=== PATIENT | female | born 1985 | race Caucasian/White ===

== ENCOUNTER 2024-09-20 10:23 | Outpatient (REF) | payer MEDICAID, SELFPAY ==
--- OUTSIDE RECORDS SUMMARY | 2024-09-20 09:30 | XMS_ITS | Encounter Summary ---
Author Organization [employer] Address [address] [place] [address] Care Team Providers Care Ophthalmology Surgical Technician Name Role Phone Victorina De La Torre MD Primary Care Provide r Encounter Details Date Type Department Care Team (Latest Contact Info) Description 09/20/2024 9:30 AM EDT Office Visit [facility] [address], [place] [phone] Victorina De La Torre MD [address], [place] [phone] Chronic nonintractable headache, unspecified headache type (Primary Dx); Constipation, unspecified constipation type; Anxiety; Cervicalgia; Metrorrhagia; Tuberculosis screening Social History Tobacco Use Types Packs/Day Years Used Date Smoking Tobacco: Never Passive Smoke Exposure: Never Smokeless Tobacco: Never Tobacco Cessation:Counseling Given: Not Answered Alcohol Use Standard Drinks/Week Comments Yes 0 (1 standard drink = 0.6 oz pur e alcohol) occasionally Depression Answer Date Recorded Patient Health Questionnaire-9 Score 0 09/20/2024 Patient Health Questionnaire-9 Score 0 09/20/2024 Last PHQ-9: Questionnaire Data Not on file 0 09/20/2024 Housing Stability Answer Date Recorded What is your housing situation today? I have sandra joseph 09/20/[address] you li ve. Do you have problems with any of the following? None of the above 09/20/2024 Food Insecurity Answer Date Recorded Within the past 12 months, y ou worried that your food would run out before you got money to buy more: Never True 09/20/2024 Within the past 12 months,th e food you bought just didn't last and you didn't have enough money to get more: Never True 05/2024 Transportation Answer Date Recorded In the past 12 months, has l ack of transportation kept you from medical appts, meetings, work or from getting things needed for daily living? No 09/20/2024 Utilities Answer Date Recorded In the past 12 months, has t he electric, gas, oil or water company threatened to shut off services in your home? No 09/20/2024 Depression Answer Date Recorded Patient Health Questionnaire-2 Score 0 09/20/2024 Internet Access Answer Date Recorded Internet Access Q1 Yes 09/20/2024 Internet Access Q2 Not on file 09/20/2024 Comments Unknown Sex and Gender Information Value Date Recorded Sex Assigned at Female 08/04/2024 10:08 AM EDT Legal Sex Female 9:31 AM EDT Gender Identity Female 08/04/2024 10:08 AM EDT Sexual Orientation Choose not to disclose 2024 9:33 AM EDT documented as of this encounter Last Filed Vital Signs Vital Sign Reading Time Taken Comments Blood Pressure 112/70 09/20/2024 9:07 AM EDT Pulse 78 09/20/2024 9:07 AM EDT Temperature 36.6 C (97.9 F) 09/20/2024 9:07 AM EDT Respiratory Rate 12 09/20/2024 9:07 AM EDT Oxygen Saturation - - Inhaled Oxygen Concentration - - Weight 52.2 kg (115 lb) 09/20/2024 9:07 AM EDT Height 158.5 cm (5' 2.4 ) 09/20/2024 9:07 AM EDT Body Mass Index 20.76 09/20/2024 9:07 AM EDT documented in this encounter Functional Status * Over the past 2 weeks, how often have you been bothered by any of the following problems? Question Answer Date of Assessment Author Patient Health Questionnaire-2 Score 0 05/2024 9:11 AM EDT Jyoti Galeana MA * Little interest or pleasure in doing things Answer Date of Assessment Author Not at all 09/20/2024 9:11 AM EDT Edilma Galeana MA * Feeling down, depressed, or hopeless Answer Date of Assessment Author Not at all 09/20/2024 9:11 AM EDT Edilma Galeana MA * Trouble falling or staying asleep, or sleeping too much Answer Date of Assessment Author Not at all 09/20/2024 9:11 AM EDT Edilma Galeana MA * Feeling tired or having little energy Answer Date of Assessment Author Not at all 09/20/2024 9:11 AM EDT Edilma Galeana MA * Poor appetite or overeating Answer Date of Assessment Author Not at all 09/20/2024 9:11 AM EDT Edilma Galeana MA * Feeling bad about yourself - or that you are a failure or have let yourself or your family down Answer Date of Assessment Author Not at all 09/20/2024 9:11 AM EDT Edilma Galeana MA * Trouble concentrating on things, such as reading the newspaper or watching television Answer Date of Assessment Author Not at all 09/20/2024 9:11 AM EDT Edilma Galeana MA * Moving or speaking so slowly that other people could have noticed? Or the opposite - being so fidgety or restless that you have been moving around a lot more than usual. Answer Date of Assessment Author Not at all 09/20/2024 9:11 AM EDT Edilma Galeana MA * Thoughts that you would be better off or hurting yourself in some way Answer Date of Assessment Author Not at all 09/20/2024 9:11 AM EDT Edilma Galeana MA * Patient Health Questionnaire-9 Score Answer Date of Assessment Author 0 09/20/2024 9:11 AM EDT Edilma Galeana MA * Over the last 2 weeks, how often have you been bothered by any of the following problems? Question Answer Date of Assessment Author Feeling nervous, anxious, or on edge 1 05/2024 9:11 AM EDT Jyoti Galeana MA Not being able to stop or co ntrol worrying 0 09/20/2024 9:11 AM GEMAT Jyoti Galeana MA Worrying too much about diff erent things 0 09/20/2024 9:11 AM EDT Jyoti Galeana MA Trouble relaxing 0 09/20/2024 9:11 AM EDT S Jyoti parra MA Being so restless that it is hard to sit still 0 09/20/2024 9:11 AM EDT Jyoti Galeana MA Becoming easily annoyed or irritable 0 0705/2024 9:11 AM EDT Jyoti Galeana MA Feeling afraid as if somethi ng awful might happen 0 09/20/2024 9:11 AM EDT Jyoti Galeana MA ELHAM-7 Total Score 1 09/20/2024 9:11 AM EDT Jyoti Galeana MA documented as of this encounter Plan of Treatment Upcoming Encounters Date Type Department Care Team (Late st Contact Info) Description 11/27/2024 10:45 AM EDT Telemedicine [facility] [address] [place] [address] Victorina De La Torre MD [address] [place] [address] Scheduled Orders Name Type Priority Associated Diagnoses Orde r Schedule CBC auto differential Lab Routine Chronic nonintractable headache, unspecified headache type Expected: 09/20/2024 (Approximate), Expires: 09/20/2025 Comprehensive Metabolic Panel Lab Routine Chronic nonintractable headache, unspecified headache type Expected: 09/20/2024 (Approximate), Expires: 09/20/2025 Hemoglobin A1c Lab Routine Chronic nonintractable headache, unspecified headache type Expected: 09/20/2024 (Approximate), Expires: 09/20/2025 HIV-1/2 Antigen and Antibodies, Fourth Generation, with Reflexes Lab Routine Chronic nonintractable headache, unspecified headache type Expected: 09/20/2024 (Approximate), Expires: 09/20/2025 Hepatitis C Antibody with Reflex to HCV, RNA, Quantitative, Real-Time PCR Lab Routine Chronic nonintractable headache, unspecified headache type Expected: 09/20/2024, Expires: 09/20/2025 Lipid Panel, Standard Lab Routine Chronic nonintractable headache, unspecified headache type Expected: 09/20/2024 (Approximate), Expires: 09/20/2025 Vitamin D, 25-Hydroxy, Total, Immunoassay Lab Routine Chronic nonintractable headache, unspecified headache type Expected: 09/20/2024 (Approximate), Expires: 09/20/2025 TSH with Reflex to Free T4 Lab Routine Chronic nonintractable headache, unspecified headache type Constipation, unspecified constipation type Anxiety Metrorrhagia Expected: 09/20/2024 (Approximate), Expires: 09/20/2025 T-SPOT .TB Lab Routine Tuberculosis screening Expected: 09/20/2024 (Approximate), Expires: 09/20/2025 documented as of this encounter Visit Diagnoses Diagnosis Chronic nonintractable headache, unspecified headache type- Primary Constipation, unspecified constipation type Anxiety Anxiety state, unspecified Cervicalgia Metrorrhagia Tuberculosis screening Screening examination for pulmonary tuberculosis documented in this encounter Additional Health Concerns Assessment Noted Time PHQ-9 Depression Total Score: 0 09/21/19 9:11 AM EDT documented as of this encounter Care Teams Ophthalmology Surgical Technician Relationship Specialty Start Date End Date Victorina De La Torre MD [address] [place] [id number] PCP - General Internal Medicine 09/20/24 documented as of this encounter
[2024-09-20 11:06] LABS: MANUAL DIFF FLAG NO
[2024-09-20 11:26] LABS: Hematocrit 35.2 % (37.0-47.0); Hemoglobin 11.4 g/dl (12.0-16.0); Imm Gran Abs Auto 0.00 X10*3/uL (0.00-0.03); Imm Gran Pct Auto 0.0 % (0.0-0.4); Lymphocytes Absolute Auto 2.2 X10*3/uL (1.2-4.9); Mean Corpuscular HGB Conc 32.4 g/dl (31.0-35.0); Mean Corpuscular Hemoglobin 28.1 pg (27.0-33.0); Mean Corpuscular Volume 86.7 fL (80.0-98.0); NRBC Abs Auto 0.000 X10*3/uL (0.0-0.012); NRBC Pct Auto 0.0 /100WBC (0.0-0.2); Platelet Count 346 X10*3/uL (160-400); Red Blood Count 4.06 X10*6/uL (4.20-5.50); White Blood Count 4.9 X10*3/uL (4.8-10.8)
[2024-09-20 11:44] LABS: Hemoglobin A1C 125.3131 umol/L; Total Hemoglobin (HGBA1C) 3657.0404 umol/L
[2024-09-20 11:55] LABS: Alanine Aminotransferase 22 U/L (0-31); Albumin Level 4.8 g/dL (3.5-5.0); Alkaline Phosphatase 60 U/L (39-117); Anion Gap 11 (12-20); Aspartate Amino Transferase 24 U/L (5-31); Blood Urea Nitrogen 15 mg/dL (9-16); Calcium 9.3 mg/dL (8.4-10.2); Carbon Dioxide 28 mmol/L (22-29); Chloride 104 mmol/L (96-108); Cholesterol 251 mg/dL (<200); Estimated Glomerular Filt Rate > 60; HDL Cholesterol 65 mg/dL (>40); Potassium 3.7 mmol/L (3.3-5.1); Sodium 139 mmol/L (135-145); Total Protein 7.4 g/dL (6.5-8.0); Triglycerides 74 mg/dL (<150)
[2024-09-20 11:59] LABS: HIV Num 1 0.05 S/CO (0.00-0.99); ~HepC Num1 0.12 S/CO (0.00-0.79); ~Hepatitis C Antibody Nonreactive (Nonreactive)
[2024-09-24 01:28] LABS: TS Negative Control Passed; TS Panel A 38; TS Panel B 38; TS Positive Control Passed; TSpotTB Positive (Negative)
== END 2024-09-20 10:24 | disposition home or self-care (01) ==
LOC: HO.HHCL 10:23
PROVIDERS: PCP Internal Medicine; Visit Provider Internal Medicine
DX: Z11.1 Encounter for screening for respiratory tuberculosis (principal); R51.9 Headache, unspecified; G89.29 Other chronic pain; K59.00 Constipation, unspecified; N92.1 Excessive and frequent menstruation with irregular cycle; F41.9 Anxiety disorder, unspecified
CPT/HCPCS: 36415; 80053; 80061; 82306; 83036; 84443; 85025; 86481; 86803; 87389

== ENCOUNTER 2024-09-26 08:40 | Outpatient (REF) | payer MEDICAID, SELFPAY ==
--- NOTE | ~2024-09-26 | XR_ITS ---
EXAMINATION: XR CHEST CLINICAL INFORMATION: TB COMPARISON: None available. TECHNIQUE: 2 views of the chest were obtained. FINDINGS: No consolidation, pleural effusion or pneumothorax. Cardiomediastinal silhouette size is normal. Mild multilevel thoracic spondylosis. Hyperinflated lungs. XR/XR chest 2V IMPRESSION: Hyperinflated lungs without acute airspace disease. Electronically signed by: Adiel Mason MD 09/26/2024 09:17 AM EDT
--- OUTSIDE RECORDS SUMMARY | 2024-09-26 08:52 | XMS_ITS | Clinical Summary ---
Author Organization [employer] Address [address] [facility] [address] [place] [address] Care Team Providers Care Central Supply Tech Name Role Phone Victorina De La Torre MD Primary Care Provide r Allergies No known active allergies Medications DULoxetine (Cymbalta) [address] capsule Take 30 mg by mouth 2 times daily. Do not crush or chew. Active amitriptyline (Elavil) 25 MG tablet Take by mouth at bedtime. Active polyethylene glycol, PEG, 3350 (Miralax) 17 g packet Take 17 g by mouth Once per day. 30 packet 3 Active Additional Information Patient not taking.Reported on 09/20/2024 Sennosides (Senna) 8.6 MG capsule Take 1 capsule (8.6 mg) by mouth at bedtime. 90 capsule Active Additional Information Patient not taking.Reported on 09/20/2024 Active Problems Problem Noted Date Diagnosed Date Chronic headache 09/20/2024 Assessment & Plan (09/20/2024 12:25 PM EDT): Drink plenty of water do not get dehydrated, avoid excessive screen time, avoid alcohol Acetaminophen as needed Constipation 09/20/2024 Assessment & Plan (09/20/2024 12:23 PM EDT): Drink plenty of water add more fiber to diet Continue with MiraLAX as needed Daily exercise was also recommended Anxiety 09/20/2024 Assessment & Plan (09/20/2024 12:24 PM EDT): Counseling done patient is in the process of getting a therapist she is being followed by psychiatrist via telemedicine Cervicalgia 09/20/2024 Assessment & Plan (09/20/2024 12:24 PM EDT): Apply heat on affected area, gentle stretching, acetaminophen as needed Metrorrhagia 09/20/2024 Assessment & Plan (09/20/2024 12:23 PM EDT): Will continue to monitor for now Tuberculosis screening 09/20/2024 Assessment & Plan (09/20/2024 12:24 PM EDT): Patient reports tuberculosis test done previously was positive, but she was never treated I will repeat T spot, if positive I will refer patient to tuberculosis clinic Encounters Date Type Department Care Team Description 09/24/2024 Orders Only [address] [address] Victorina De La Torre MD Positive TB test (Primary Dx) 09/24/2024 Results Follow-Up [address] [address] Victorina De La Torre MD CBC auto differential, Comprehensive Metabolic Panel, Hemoglobin A1c, Additional followed-up results: 6 09/24/2024 Telephone [facility] [address] [place] [address] Victorina De La Torre MD 09/20/2024 9:30 AM EDT Office Visit [address] [address] Victorina De La Torre MD Chronic nonintractable headache, unspecified headache type (Primary Dx); Constipation, unspecified constipation type; Anxiety; Cervicalgia; Metrorrhagia; Tuberculosis screening 09/20/2024 Travel 09/19/[address] [address] Victorina De La Torre MD Chart Prep 09/13/2024 Patient Outreach [facility] [address], [place] [phone] Victorina De La Torre MD Pre-visit Planning (SDOH unable to reach LVM ) 08/24/2024 Telephone [facility] [address] [place] [phone] Evelyn Garza MD Chart Prep 08/12/2024 Telephone [facility] [address] [place] [address] [facility] 08/04/2024 10:00 AM EDT Office Visit [facility] [address] [place] [address] [facility] Nausea (Primary Dx) 08/04/2024 Travel from Last 3 Months Social History Tobacco Use Types Packs/Day Years [...] your housing situation today? I have sandra ruiz 09/20/[address] you li [...] not to disclose 2024 9:33 AM EDT Last Filed Vital Signs Vital Sign Reading Time Taken Comments Blood Pressure 112/70 09/20/2024 9:07 AM EDT Pulse 78 09/20/2024 9:07 AM EDT Temperature 36.6 C (97.9 F) 09/20/2024 9:07 AM EDT Respiratory Rate 12 09/20/2024 9:07 AM EDT Oxygen Saturation 92% 08/04/2024 10:22 AM EDT Inhaled Oxygen Concentration - - Weight 52.2 kg (115 lb) 09/20/2024 9:07 AM EDT Height 158.5 cm (5' 2.4 ) 09/20/2024 9:07 AM EDT Body Mass Index 20.76 09/20/2024 9:07 AM EDT Plan of Treatment Upcoming Encounters Date Type Department Care Team (Late st Contact Info) Description 11/27/2024 10:45 AM EDT Telemedicine [facility] [address] [place] [address] Victorina De La Torre MD [address] [place] [address] Health Maintenance Due Date Last Done Comments Family Planning (PISQ) 1998 HPV Vaccines (1 - 3-dose series) 1998 DTaP/Tdap/Td Vaccines (1 - Tdap) 2002 Hepatitis B Vaccines (1 of 3 - 19+ 3-dose series) 2002 Pap Smear 2004 Cervical Cancer Screening 2013 HPV/Cotest 2013 Mammogram 2023 COVID-19 Vaccine (1 - 2023-2 5 season) 2023 Influenza Vaccine (#1) 2024 Alcohol/Substance Use Screening 09/20/2025 09/20/2024 Depression Screening 09/20/2025 09/20/2024, 09/20/2024 Disability Screening 09/20/2025 09/20/2024 SDOH Screening 09/20/2025 09/20/2024 Tobacco Screening 09/20/2025 09/20/2024 Zoster Vaccines (1 of 2) 2033 RSV Patients and Patients Aged 60 years or older (1 - 1-dose 75+ series) 2058 HIV Screening Completed 09/20/2024 Hepatitis C Screening Completed 09/20/2024 HIB Vaccines Aged Out No longer eligi ble based on patient's age to complete this topic Hepatitis A Vaccines Aged Out No long er eligible based on patient's age to complete this topic IPV Vaccines Aged Out No longer eligi ble based on patient's age to complete this topic Meningococcal B Vaccine Aged Out No l onger eligible based on patient's age to complete this topic Meningococcal Vaccine Aged Out No cierra tonie eligible based on patient's age to complete this topic Pneumococcal Vaccine: Pediatrics (0 to 5 Years) and At-Risk Patients (6 to 49) Years Aged Out No longer eligible b ased on patient's age to complete this topic RSV under 20 months Aged Out No longe r eligible based on patient's age to complete this topic Rotavirus Vaccines Aged Out No longer eligible based on patient's age to complete this topic Procedures Procedure Name Priority Date/Time Associated Diagnosis Comments T-SPOT(R).TB Routine 09/20/2024 10:33 AM EDT Tuberculosis screening TSH W/REFLEX TO FT4 Routine 09/20/2024 1 0:33 AM EDT Chronic nonintractable headache, unspecified headache type Constipation, unspecified constipation type Anxiety Metrorrhagia VITAMIN D,25-OH,TOTAL,IA Routine 09/20/2024 10:33 AM EDT Chronic nonintractable headache, unspecified headache type LIPID PANEL, STANDARD Routine 09/20/2024 10:33 AM EDT Chronic nonintractable headache, unspecified headache type HEPATITIS C AB W/REFL TO HCV RNA, QN, PCR Routine 09/20/2024 10:33 AM EDT Chronic nonintractable headache, unspecified headache type HIV 1/2 ANTIGEN/ANTIBODY, FOURTH GENERATION W/RFL Routine 09/20/2024 10:33 AM EDT Chronic nonintractable headache, unspecified headache type HEMOGLOBIN A1C Routine 09/20/2024 10:33 AM EDT Chronic nonintractable headache, unspecified headache type COMPREHENSIVE METABOLIC PANEL Routine 09/20/2024 10:33 AM EDT Chronic nonintractable headache, unspecified headache type CBC WITH AUTO DIFFERENTIAL Routine 09/20/2024 10:33 AM EDT Chronic nonintractable headache, unspecified headache type POCT RAPID COVID ANTIGEN Routine 08/04/2024 10:53 AM EDT Nausea POCT INFLUENZA A (ID NOW RAPID MOLECULAR) Routine 08/04/2024 10:52 AM EDT Nausea POCT INFLUENZA B (ID NOW RAPID MOLECULAR) Routine 08/04/2024 10:51 AM EDT Nausea from Last 3 Months Results * Vitamin D, 25-Hydroxy, Total, Immunoassay (09/20/2024 10:33 AM EDT) [facility] Vitamin D 25-OH Total 31.1 >30 ng/mL [facility] Comment: Health Based Reference Values*< 20 ng/mL [id number] ng/mL Insufficient> 30 ng/mL Sufficient*Ashely MERRITT. N Engl J Med. 2007;357:266-280There is no well-established upper level of normal vitamin Dlevels. Some laboratories use 50 ng/mL as an upper limit ofnormal. However, toxicity is patient-dependent and may occurat any level. Careful correlation with the patient'spresentation is necessary and, if there is concern forvitamin D toxicity, treatment should be consideredirrespective of the serum level.Care must be taken in interpreting Vitamin D results fromdifferent laboratories and methodologies. Published datademonstrated that results from patients undergoinghemodialysis may show a negative bias when tested withvarious automated 25-OH vitamin D assays when compared toLC-MS/MS.When testing samples from patients whose predominant form ofVitamin D is Vitamin D2, such as patients receiving VitaminD2 supplementation, results that are subtherapeutic shouldbe confirmed with another method such as LC-MS/MS. Blood Venous blood specimen / Unknown 09/20/2024 10:33 AM EDT 09/20/2024 11:05 AM EDT us Victorina Medina MD LAB BLOOD ORDERABLES Final Result [facility] [address] [place] [phone] * (ABNORMAL) T-SPOT??.TB (09/20/2024 10:33 AM EDT) T Spot TB Positive( A) Negative [facility] Comment: Diagnosing or excluding tuberculosis (TB) disease andassessing the probability of latent TB infection (LTBI)requires a combination of epidemiological, historical,medical and diagnostic findings that should be takeninto consideration when interpreting T-SPOT.TB testresults. A positive test result does not rule in activeTB disease caused by Mycobacterium tuberculosis(M. tuberculosis); active TB disease should beconfirmed by other tests such as sputum smear andculture, PCR, and chest radiography.Uncommonly, a positive T-SPOT.TB result may be due toinfection with other Mycobacterium species includingM. kansasii, M. szulgai, M. gordonae, or M. marinum.Alternative tests would be required if these infectionsare suspected.The T-SPOT.TB test is qualitative and results arereported as positive, borderline, or negative, giventhat the test controls perform as expected. In linewith the Centers for Disease Control and Prevention's2010 recommendation to report quantitative measurementsalongside the qualitative result, the laboratoryprovides spot counts for informational purposes only.The T-SPOT.TB test should not be interpreted as aquantitative test. TS PANEL A 38 [facility] TS PANEL B 38 [facility] Negative Control Passed [facility] Positive Control Passed [facility] Comment:For additional infor brian, please refer [email or web address].quietrevolution/faq/DOD687(This link is being provided for informational/educational purposes only.)REPORT COMMENT:REC'D AT CHYTHIS TEST WAS PERFORMED AT:[id number] [place] [id number] KAISER MD,PHD 09/20/2024 10:3 3 AM EDT 09/20/2024 11:05 AM EDT Narrative [facility] - 09/24/2024 1:28 AM EDT RESULTS, AND CALLED [employer] AT [phone]. us Victorina Medina MD LAB BLOOD ORDERABLES Final Result Performing Organization Address [facility]/ZIP Co de Phone Number [facility] [address] [place] [phone] * TSH with Reflex to Free T4 (09/20/2024 10:33 AM EDT) Pathologist [facility] TSH reflex Free T4 0.54 0.32 - 4.0 uIU/mL [facility] Blood Venous blood specimen / Unknown 09/20/2024 10:33 AM EDT 09/20/2024 11:05 AM EDT us Victorina Medina MD LAB BLOOD ORDERABLES Final Result Performing Organization Address [facility]/ZIP Co de Phone Number [facility] [address] [place] [phone] * (ABNORMAL) CBC auto differential (09/20/2024 10:33 AM EDT) White Blood Count 4.9 4.8 - 10.8 X10*3/uL [facility] Red Blood Count 4.06(L) 4.20 - 5.50 X10*6/uL [facility] Hemoglobin 11.4(L) 12.0 - 16.0 g/dl [facility] Hematocrit 35.2(L) 37.0 - 47.0 % [facility] Mean Corpuscular Volume 86.7 80.0 - 98.0 fL [facility] Mean Corpuscular Hemoglobin 28.1 27.0 - 33.0 pg [facility] Mean Corpuscular HGB Conc 32.4 31.0 - 35.0 g/dl [facility] Red Cell Distribution Width 13.3 11.0 - 16.0 % [facility] Platelet Count 346 160 - 400 X10*3/uL [facility] Mean Platelet Volume 10.8 9.4 - 12.3 fL [facility] Neutrophils Percent Auto 41.8(L) 45 - 73 % [facility] Imm Gran Pct Auto 0.0 0.0 - 0.4 % [facility] Lymphocytes Percent Auto 44.5(H) 20 - 40 % [facility] Monocytes Percent Auto 8.0 2 - 11 % [facility] Eosinophils Percent Auto 4.9(H) 0 - 4 % [facility] Basophils Percent Auto 0.8 0 - 2 % [facility] NRBC Pct Auto 0.0 0.0 - 0.2 /100WBC [facility] Neutrophils Absolute Auto 2.0 2.0 - 8.3 x10*3/uL [facility] Imm Gran Abs Auto 0.00 0.00 - 0.03 X10*3/uL [facility] Lymphocytes Absolute Auto 2.2 1.2 - 4.9 X10*3/uL [facility] Monocytes Absolute Auto 0.4 0.1 - 1.2 X10*3/uL [facility] Eosinophils Absolute Auto 0.2 0.0 - 0.4 X10*3/uL [facility] Basophils Absolute Auto 0.0 0.0 - 0.2 X10*3/uL [facility] NRBC Abs Auto 0.000 0.0 - 0.012 X10*3/uL [facility] Blood Venous blood specimen / Unknown 09/20/2024 10:33 AM EDT 09/20/2024 11:05 AM EDT Victorina Medina MD LAB BLOOD ORDERABLES Final Result Performing Organization Address [facility]/ZIP Co de Phone Number [facility] [address] [place] [phone] [phone] * Hepatitis C Antibody with Reflex to HCV, RNA, Quantitative, Real-Time PCR (09/20/2024 10:33 AM EDT) Hepatitis C Antibody Nonreactive Nonreactive [facility] Comment:Antibodies to HCV no t detected; does not exclude early acuteHCV infection. Blood Venous blood specimen / Unknown 09/20/2024 10:33 AM EDT 09/20/2024 11:05 AM EDT Victorina Medina MD LAB BLOOD ORDERABLES Final Result Performing Organization Address [facility] Co de Phone Number [facility] [address] [place] [phone] [phone] * HIV-1/2 Antigen and Antibodies, Fourth Generation, with Reflexes (09/20/2024 10:33 AM EDT) HIV AB/AG Nonreactive Nonreactive [facility] Comment:HIV-1 p24 Ag and/or HIV-1/HIV-2 Ab not detected.A test result that is nonreactive does not exclude thepossibility of exposure to or infection with HIV-1 and/orHIV-2. Nonreactive results in this assay for individualswith prior exposure to HIV-1 and/or HIV-2 may be due toantigen and antibody levels that are below the limit ofdetection of this assay.The [employer] HIV Ag/Ab Combo assay result andsupplemental assay results should be interpreted inconjunction with the patient's clinical presentation,history and other laboratory results. If the results areinconsistent with clinical evidence, additional testing issuggested to confirm the result. Blood Venous blood specimen / Unknown 09/20/2024 10:33 AM EDT 09/20/2024 11:05 AM EDT us Victorina Medina MD LAB BLOOD ORDERABLES Final Result Performing Organization Address [facility] Co de Phone Number [facility] [address] [place] [phone] * Hemoglobin A1c (09/20/2024 10:33 AM EDT) Hemoglobin A1c 5.3 <6.0 % [facility] Comment:Hemoglobin A1C Refer ence Range Adults: 4.8 - 6.0 % Non diabetic: < 6.0 % Goal: < 7.0 %Additional Action Suggested: > 8.0 %Note: Hemoglobin A1c results are invalid for patients with abnormal amounts of HbF. Blood transfusions may impact the HbA1c concentration in the patient sample. Estimated Average Glucose 105 mg/dL [facility] Comment:eAG = Estimated ave rage glucose which is %A1C expressed asaverage glucose, using the formula of the C4L-PfflaqsOopraat Glucose study (ADAG), Diabetes Care, Vol.31,#8,2007 Blood Venous blood specimen / Unknown 09/20/2024 10:33 AM EDT 09/20/2024 11:05 AM EDT us Victorina Medina MD LAB BLOOD ORDERABLES Final Result Performing Organization Address [facility] Co de Phone Number [facility] [address] [place] [phone] [phone] * (ABNORMAL) Lipid Panel, Standard (09/20/2024 10:33 AM EDT) Triglycerides 74 <150 mg/dL [facility] Comment:Desirable Triglyceri de: less than 150 mg/dLBorderline High Triglyceride 150-199 mg/dLHigh Triglyceride: 200-499 mg/dLVery High Triglyceride: greater than or equal to 5OO mg/dL Cholesterol 251(H) <200 mg/dL [facility] Comment:Desirable Cholestero l: less than 200 mg/dLBorderline High Cholesterol: 200-239 mg/dLHigh Cholesterol: greater than 239 mg/dL LDL Cholesterol Calculated 172(H) <100 mg/dL [facility] Comment:Desirable LDL: less than 100 mg/dLNear Optimal/Above Optimal LDL: 110- 129 mg/dLBorderline High LDL: 130-159 mg/dLHigh LDL: 160-189 mg/dLVery High LDL: greater than or equal to 190 mg/dL HDL Cholesterol 65 >40 mg/dL [facility] Comment:Desirable HDL: great er than 40 mg/dL Note: This HDL assay may give artificially low results in patients with liver disease. Blood Venous blood specimen / Unknown 09/20/2024 10:33 AM EDT 09/20/2024 11:05 AM EDT us Victorina Medina MD LAB BLOOD ORDERABLES Final Result [facility] [address] [place] [phone] * (ABNORMAL) Comprehensive Metabolic Panel (09/20/2024 10:33 AM EDT) Sodium 139 135 - 145 mmol/L [facility] Potassium 3.7 3.3 - 5.1 mmol/L [facility] Chloride 104 96 - 108 mmol/L [facility] Carbon Dioxide 28 22 - 29 mmol/L [facility] Anion Gap 11(L) 12 - 20 [facility] Urea Nitrogen (BUN) 15 9 - 16 mg/dL [facility] Creatinine, Serum 0.62 0.5 - 1.4 mg/dL [facility] Estimated Glomerular Filt Rate >60 [facility] Comment:Chronic Kidney Disea se: Estimated GFR < 60 mL/min/1.37p2Nlxguu Kidney Disease: Estimated GFR < 15 mL/min/1.73m2 Glucose 85 60 - 115 mg/dL [facility] Calcium 9.3 8.4 - 10.2 mg/dL [facility] Bilirubin, Total 0.5 0.0 - 1.0 mg/dL [facility] Aspartate Amino Transferase 24 5 - 31 U/L [facility] Alanine Aminotransferase 22 0 - 31 U/L [facility] Total Protein 7.4 6.5 - 8.0 g/dL [facility] Albumin Level 4.8 3.5 - 5.0 g/dL [facility] Alkaline Phosphatase 60 39 - 117 U/L [facility] Blood Venous blood specimen / Unknown 09/20/2024 10:33 AM EDT 09/20/2024 11:05 AM EDT Victorina Medina MD LAB BLOOD ORDERABLES Final Result Performing Organization Address [facility]/ZIP Co de Phone Number [facility] [address] [place] [phone] * POCT Rapid Covid-19 BinaxNOW (08/04/2024 10:53 AM EDT) Rapid COVID Ag Negative QC Media Lot # [id number] Lot# Expiration Date [id number] Swab 08/04/2024 10:5 3 AM EDT [facility] COLON THERAPIST POINT OF CARE TEST ENTER/EDIT ORDERABLES Final Result * POCT Rapid Influenza A GUPTA ID NOW (08/04/2024 10:52 AM EDT) Influenza A Negative Negative, Indeterminate [facility] QC Media Lot # [id number] [facility] Lot# Expiration Date [address] [facility] Swab 08/04/2024 10:5 2 AM EDT [facility] COLON THERAPIST POINT OF CARE TEST ENTER/EDIT ORDERABLES Final Result Performing Organization Address City/[facility]/ZIP Co de Phone Number [facility] [address] [place] [phone] * POCT Rapid Influenza B GUPTA ID NOW (08/04/2024 10:51 AM EDT) Influenza B Negative Negative, Indeterminate [facility] QC Media Lot # [id number] [facility] Lot# Expiration Date [address] [facility] Swab 08/04/2024 10:5 1 AM EDT [facility] COLON THERAPIST POINT OF CARE TEST ENTER/EDIT ORDERABLES Final Result [facility] [address] [place] [phone] [phone] from Last 3 Months Insurance N PARTIAL Care Teams Central Supply Tech Relationship Specialty Start Date End Date Victorina De La Torre MD [address] [place] [address] PCP - General Internal Medicine 09/20/24
== END 2024-09-26 08:41 | disposition home or self-care (01) ==
LOC: HO.HHCX 08:40
PROVIDERS: PCP Internal Medicine; Visit Provider Internal Medicine
DX: R76.11 Nonspecific reaction to tuberculin skin test without active tuberculosis (principal)
CPT/HCPCS: 71046

== ENCOUNTER → 2024-09-26 08:50 | Outpatient (BNV) | payer MEDICAID, SELFPAY | PROVIDERS: PCP Internal Medicine; Visit Provider Radiology Diagnostic Radiology | DX: J98.4 Other disorders of lung (principal) | CPT/HCPCS: 71046 ==

== ENCOUNTER 2024-11-16 16:20 | Outpatient (REF) | payer SELFPAY ==
--- OUTSIDE RECORDS SUMMARY | 2024-11-16 09:40 | XMS_ITS | Encounter Summary ---
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 Name Role Phone Victorina De La Torre MD Primary Care Provide r Encounter Details Date Type Department Care Team (Latest Contact Info) Description 11/16/2024 9:40 AM EDT Office Visit [facility] [address] [place] [id number] [phone] Hector Edwards MD [address] [place] [address] [phone] Chronic nonintractable headache, unspecified headache type (Primary Dx); Suprapubic pain Social History Tobacco Use Types Packs/Day Years [...] Sign Reading Time Taken Comments Blood Pressure 109/71 11/16/2024 9:28 AM EDT Pulse 86 11/16/2024 9:28 AM EDT Temperature 36.6 C (97.9 F) 11/16/2024 9:28 AM EDT Respiratory Rate 16 11/16/2024 9:28 AM EDT Oxygen Saturation 99% 11/16/2024 9:28 AM EDT Inhaled Oxygen Concentration - - Weight 54 kg (119 lb) 11/16/2024 9:28 AM EDT Height - - Body Mass Index 21.77 10/23/2024 6:07 PM EDT documented in this encounter Progress Notes * Hector Edwards MD - 11/16/2024 9:40 AM EDT Subjective History was provided by the patient. Ayleen Beth is a 39 y.o. female who presents for evaluation of 4-day durationof suprapubic tenderness and dysuria. Denies hematuria or change in urine color. Symptoms persistent, but waxing and waning for the past 4 days. Patient is describing her symptoms as inflamacion . Denies F/C/N/V/D. Denies BRBPR or melena. Denies hematuria. Took Naproxen without improvement. Recently moved from [place]. Lives with her partner and son. with (10 years ago). LMP came 10 days early (11/05/2024). Typically has very regular cycles (duration of 3-4 days; every 28-30days). States she has been taking creatine supplement for 1 month (taking recommended dose). Denies any myalgia. Also with chronic intermittent VINCENT (mostly in the occipital region). Had been on Amitriptylineand Duloxetine for chronic pain and anxiety. States she previously stopped Amitriptyline 25mg for unclear reason (states no intolerance issues). Also wishes to titrate off Duloxetine as the medication has not alleviated her symptoms. Currently at Duloxetine 30mg every other day. Patient states her insomnia has gotten worse. Pap done last year. Was told normal. Objective Vitals: 11/16/24 0928 BP: 109/71 BP Location: Left arm Patient Position: Sitting BP Cuff Size: Adult Pulse: 86 Resp: 16 Temp: 97.9 ??F (36.6 ??C) TempSrc: Temporal SpO2: 99% Weight: 119 lb (54 kg) Physical Exam Vitals reviewed. Constitutional: General: She is not in acute distress. Appearance: Normal appearance. She is normal weight. She is not ill-appearing, toxic-appearing or diaphoretic. HENT: Head: Normocephalic and atraumatic. Right Ear: External ear normal. Left Ear: External ear normal. Nose: Nose normal. Mouth/Throat: Mouth: Mucous membranes are moist. Pharynx: Oropharynx is clear. Eyes: Extraocular Movements: Extraocular movements intact. Conjunctiva/sclera: Conjunctivae normal. Pupils: Pupils are equal, round, and reactive to light. Cardiovascular: Rate and Rhythm: Normal rate and regular rhythm. Heart sounds: Normal heart sounds. Pulmonary: Effort: Pulmonary effort is normal. No respiratory distress. Breath sounds: Normal breath sounds. No wheezing, rhonchi or rales. Chest: Chest wall: No tenderness. Abdominal: General: Abdomen is flat. Bowel sounds are normal. There is no distension. Palpations: Abdomen is soft. There is no mass. Tenderness: There is abdominal tenderness (mild suprapubic tenderness without distension, guarding,or rebound). There is no right CVA tenderness, left CVA tenderness, guarding or rebound. Hernia: No hernia is present. Musculoskeletal: General: Normal range of motion. Cervical back: Neck supple. Skin: General: Skin is warm and dry. Neurological: General: No focal deficit present. Mental Status: She is alert and oriented to person, place, and time. Cranial Nerves: No cranial nerve deficit. Motor: No weakness. Psychiatric: Mood and Affect: Mood normal. Behavior: Behavior normal. Office Visit on 11/16/2024 Component Date Value Ref Range Status Color, UA 11/16/2024 Yellow Final Clarity, UA 11/16/2024 Clear Final Glucose, UA 11/16/2024 Negative Final Bilirubin, UA 11/16/2024 Negative Final Ketones, UA 11/16/2024 Negative Final Spec Grav, UA 11/16/2024 1.015 Final Blood, UA 11/16/2024 Negative Negative, None Detected Final pH, UA 11/16/2024 8.5 Final Protein, UA 11/16/2024 Trace Final Urobilinogen, UA 11/16/2024 0.2 Final Leukocytes, UA 11/16/2024 Negative Negative, Rare, Trace Final Nitrite, UA 11/16/2024 Negative Negative, None Detected Final Appearance, UA 11/16/2024 OK Final Diagnoses and all orders for this visit: Chronic nonintractable headache, unspecified headache type (Primary) - amitriptyline (Elavil) 10 MG tablet; Take 1 tablet (10 mg) by mouth at bedtime. (Discontinue Duloxetine) Suprapubic pain - POCT urinalysis dipstick manually resulted - Culture, Urine, Routine - CBC auto differential; Future - Hepatic Function Panel; Future - Basic Metabolic Panel; Future - Creatine Kinase, Total; Future - sulfamethoxazole-trimethoprim (Bactrim DS) 800-160 MG tablet; Take 1 tablet by mouth 2 times daily for 3 days. Patient with a clinical presentation of cystitis, but her POC UA is normal Given presenting history and physical exam, will presumptively treat with antibiotic medication (Bactrim DS 3-day course; previously tolerated this medication) Will send out Urine Culture for further evaluation Check CBC, LFT, BMP, and CPK Also would like to resume Amitriptyline at a lower dose to help with VINCENT, anxiety, and insomnia Patient has non-focal, normal neurologic exam Will Rx Amitriptyline 10mg at bedtime Potential adverse effects of the medications reviewed Indications for UC/ER use reviewed Advised to contact the clinic if persistent or worsening symptoms documented in this encounter Plan of Treatment Upcoming Encounters Date Type Department Care Team (Late st Contact Info) Description 11/27/2024 10:45 AM EDT Telemedicine [facility] [address] [place] [phone] Victorina De La Torre MD [address] [place] [address] Scheduled Orders Name Type Priority Associated Diagnoses Orde r Schedule Culture, Urine, Routine Microbiology Routine Suprapubic pain Ordered: 11/16/2024 CBC auto differential Lab Routine Suprapubic pain Expected: 11/16/2024 (Approximate), Expires: 11/16/2025 Hepatic Function Panel Lab Routine Suprapubic pain Expected: 11/16/2024 (Approximate), Expires: 11/16/2025 Basic Metabolic Panel Lab Routine Suprapubic pain Expected: 11/16/2024 (Approximate), Expires: 11/16/2025 Creatine Kinase, Total Lab Routine Suprapubic pain Expected: 11/16/2024, Expires: 11/16/2025 documented as of this encounter Procedures Procedure Name Priority Date/Time Associated Diagnosis Comments POCT URINALYSIS DIPSTICK Routine 11/16/2024 9:36 AM EDT Suprapubic pain documented in this encounter Results * POCT urinalysis dipstick manually resulted (11/16/2024 9:36 AM EDT) Color, UA Yellow Clarity, UA Clear Glucose, UA Negative Bilirubin, UA Negative Ketones, UA Negative Spec Grav, UA 1.015 Blood, UA Negative Negative, None Detected pH, UA 8.5 Protein, UA Trace Urobilinogen, UA 0.2 Leukocytes, UA Negative Negative, Rare, Trace Nitrite, UA Negative Negative, None Detected Appearance, UA OK Urine 11/16/2024 9:36 AM EDT Hector Edwards MD POINT OF CARE TEST ENTER/EDIT OR DERABLES Final Result documented in this encounter Visit Diagnoses Diagnosis Chronic nonintractable headache, unspecified headache type- Primary Suprapubic pain Abdominal pain, other specified site documented in this encounter Additional Health Concerns Assessment Noted Time PHQ-9 Depression Total Score: 0 09/21/19 9:11 AM EDT documented as of this encounter Care Teams Industrial Twisting Machine Operator Relationship Specialty Start Date End Date Victorina De La Torre MD [address] [place] [phone] PCP - General Internal Medicine 09/20/24 documented as of this encounter
--- OUTSIDE RECORDS SUMMARY | 2024-11-16 16:22 | XMS_ITS | Encounter Summary ---
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 [employer] Name Role Phone Victorina De La Torre MD Primary Care Provide r Encounter Details Date Type Department Care Team (Latest Contact Info) Description 11/16/2024 Travel Social History Tobacco Use Types Packs/Day Years Used Date Smoking Tobacco: Never Passive Smoke Exposure: Never Smokeless Tobacco: Never Alcohol Use Standard Drinks/Week Comments Yes 0 (1 standard drink = 0.6 oz pur e alcohol) occasionally Depression Answer Date Recorded Patient Health Questionnaire-9 Score 0 09/20/2024 Patient Health Questionnaire-9 Score 0 09/20/2024 Last PHQ-9: Questionnaire Data Not on file 0 09/20/2024 Housing Stability Answer Date Recorded What is your housing situation today? I have sandradarius ruiz 09/20/[address] you [...] AM EDT documented as of this encounter Plan of Treatment Upcoming Encounters Date Type Department Care Team (Late st Contact Info) Description 11/27/2024 10:45 AM EDT Telemedicine [facility] [address] [place] [phone] Victorina De La Torre MD [address] [place] [phone] documented as of this encounter Visit Diagnoses Not on filedocumented in this encounter Additional Health Concerns Assessment Noted Time PHQ-9 Depression Total Score: 0 09/21/19 9:11 AM EDT documented as of this encounter Care Teams Bus Dispatcher [employer] Relationship Specialty Start Date End Date Victorina De La Torre MD [address] [place] [id number] PCP - General Internal Medicine 09/20/24 documented as of this encounter
--- OUTSIDE RECORDS SUMMARY | 2024-11-16 16:22 | XMS_ITS | Clinical Summary ---
Author Organization [employer] Address [address] [place] [address] Care Team Providers Care Hrbp Name Role Phone Victorina De La Torre MD Primary Care Provide r Allergies No known active allergies Medications DULoxetine (Cymbalta) [address] capsule Take 1 capsule (30 mg) by mouth Once per day. Do not crush or chew. 30 capsule 10/24/19 25 Active ibuprofen 600 MG tablet Take 1 tablet (600 mg) by mouth 3 times daily. 90 tablet 10/24/19 25 025 Active amitriptyline (Elavil) 10 MG tabletIndications :Chronic nonintractable headache, unspecified headache type Take 1 tablet (10 mg) by mouth at bedtime. (Discontin ue Duloxetine ) 30 tablet 2 11/17/19 25 025 Active sulfamethoxazole- trimethoprim (Bactrim DS) 800-160 MG tabletIndications :Suprapubic pain Take 1 tablet by mouth 2 times daily for 3 days. 6 tablet 11/17/19 25 025 Active DULoxetine (Cymbalta) [address] capsule Take 30 mg by mouth 2 times daily. Do not crush or chew. 025 Discontinued(Re order (will not trigger notification to Pharmacy)) amitriptyline (Elavil) 25 MG tablet Take by mouth at bedtime. 025 Discontinued polyethylene glycol, PEG, 3350 (Miralax) 17 g packet Take 17 g by mouth Once per day. 30 packet 3 08/13/19 25 025 Discontinued Sennosides (Senna) 8.6 MG capsule Take 1 capsule (8.6 mg) by mouth at bedtime. 90 capsule 08/13/19 25 025 Discontinued Active Problems Problem Noted Date Diagnosed Date Chronic headache 09/20/2024 Assessment & Plan (10/23/2024 6:44 PM EDT): Will prescribe ibuprofen, stay well hydrated, no neurologic deficit/signs, follow up as needed Assessment & Plan (09/20/2024 12:25 PM EDT): [...] Encounters Date Type Department Care Team Description 11/16/2024 9:40 AM EDT Office Visit [facility] [address] [address] Hector Edwards MD Chronic nonintractable headache, unspecified headache type (Primary Dx); Suprapubic pain 11/16/2024 Travel 10/23/2024 6:00 PM EDT Office Visit [facility] [address] [address] Donovan Dumont MD Chronic nonintractable headache, unspecified headache type (Primary Dx) 10/23/2024 Travel 10/23/[address] [address] Victorina De La Torre MD Nurse Triage 09/26/2024 Results Follow-Up [address] [address] Victorina De La Torre MD XR Chest 2 Views 09/24/2024 Orders Only [address] [address] Victorina De La Torre MD Positive TB test (Primary Dx) 09/24/2024 Results Follow-Up [address] [address] Victorina De La Torre MD CBC auto differential, Comprehensive Metabolic Panel, Hemoglobin A1c, Additional followed-up results: 6 09/24/2024 Telephone [facility] [address] [place] [address] Victorina De La Torre MD 09/20/2024 9:30 AM EDT Office Visit [address] [address] Victorina De La Torre MD Chronic nonintractable headache, unspecified headache type (Primary Dx); Constipation, unspecified constipation type; Anxiety; Cervicalgia; Metrorrhagia; Tuberculosis screening 09/20/2024 Travel 09/19/[address] [address] Victorina De La Torre MD Chart Prep 09/13/2024 Patient Outreach [facility] [address] [place] [address] Vicotrina De La Torre MD Pre-visit Planning ([facility] unable to reach [facility] ) 08/24/2024 Telephone [address] [place] [address] Evelyn Garza MD Chart Prep from Last 3 Months Social History Tobacco [...] (119 lb) 11/16/2024 9:28 AM EDT Height 157.5 cm (5' 2 ) 10/23/2024 6:07 PM EDT Body Mass Index 21.77 10/23/2024 6:07 PM EDT Plan of Treatment Upcoming Encounters Date Type Department Care Team (Late st Contact Info) Description 11/27/2024 10:45 AM EDT Telemedicine [facility] [address] [place], [place] [phone] Victorina De La Torre MD [address] [place], [place] [phone] Health Maintenance Due Date Last Done Comments Family Planning (PISQ) 1998 HPV Vaccines (1 - 3-dose series) 1998 DTaP/Tdap/Td Vaccines (1 - Tdap) 2002 Hepatitis B Vaccines (1 of 3 - 19+ 3-dose series) 2002 Pap Smear 2004 Cervical Cancer Screening 2013 HPV/Cotest 2013 Mammogram 2023 COVID-19 Vaccine ( - 2023-2 5 season) 2023 Influenza Vaccine (#1) 2024 Alcohol/Substance Use Screening 09/20/2025 09/20/2024 Depression Screening 09/20/2025 09/20/2024, 09/20/2024 Disability Screening 09/20/2025 09/20/2024 SDOH Screening 09/20/2025 09/20/2024 Tobacco Screening 11/16/2025 11/16/2024 Zoster Vaccines (1 of 2) 2033 RSV [...] Routine 11/16/2024 9:36 AM EDT Suprapubic pain XR CHEST 2 VIEWS Routine 09/26/2024 8:50 AM EDT Positive TB test T-SPOT(R).TB Routine 09/20/2024 10:33 AM EDT Tuberculosis [...] EDT Chronic nonintractable headache, unspecified headache type from Last 3 Months Results * POCT urinalysis dipstick manually resulted [...] CARE TEST ENTER/EDIT OR DERABLES Final Result * XR Chest 2 Views (09/26/2024 8:50 AM EDT) Anatomical Region Laterality Modality Chest Radiographic [place] ging 09/26/2024 8:50 AM EDT Narrative 09/26/2024 9:20 AM EDT [address] [address] XRay Report Signed Patient: Ayleen Kapadia Cynthia#: [id number] : 1985 Acct:[id number] Age/Sex: 39 / F ADM Date: 09/26/24 Loc: HO.HHCX Attending Dr: Victorina Medina MD Ordering Physician: Victorina De La Torre MD Date of Service: 09/26/24 Procedure(s): XR chest 2V Accession Number(s): [id number] cc: Victorina De La Torre MD EXAMINATION: XR CHEST CLINICAL INFORMATION: TB COMPARISON: None available. TECHNIQUE: 2 views of the chest were obtained. FINDINGS: No consolidation, pleural effusion or pneumothorax. Cardiomediastinal silhouette size is normal. Mild multilevel thoracic spondylosis. Hyperinflated lungs. XR/XR chest 2V IMPRESSION: Hyperinflated lungs without acute airspace disease. Electronically signed by: Adiel Mason MD 09/26/2024 09:17 AM EDT RP Dictated By: Adiel Vann MD Signed By: <Electronically signed by Adiel Sotelo MD in OV> 09/26/[address] DD/ 0850 TD/TT: 09/26/24 0900 Grain Roaster: Procedure Note Donotuseinterpreter, Image - 09/26/[address] [address] XRay Report Signed Patient: Ayleen Kapadia R#: [id number] : 1985Acct:[id number] Age/Sex: 39 / FADM Date: 09/26/24 Loc: HO.HHCX Attending Dr: Victorina Medina MD Ordering Physician: Victorina De La Torre MD Date of Service: 09/26/24 Procedure(s): XR chest 2V Accession Number(s): [id number] cc: Victorina De La Torre MD EXAMINATION: XR CHEST CLINICAL INFORMATION: TB COMPARISON: None available. TECHNIQUE: 2 views of the chest were obtained. FINDINGS: No consolidation, pleural effusion or pneumothorax. Cardiomediastinal silhouette size is normal. Mild multilevel thoracic spondylosis. Hyperinflated lungs. XR/XR chest 2V IMPRESSION: Hyperinflated lungs without acute airspace disease. Electronically signed by: Adiel Mason MD 09/26/2024 09:17 AM EDT RP Dictated By: Adiel Vann MD Signed By: <Electronically signed by Adiel Sotelo MDin OV> 09/26/24916 DD/ 0850 TD/TT: 09/26/24 09 Grain Roaster: us Victorina Medina MD IMG XR PROCEDURES Fin al Result * Vitamin D, 25-Hydroxy, Total, Immunoassay (09/20/2024 10:33 AM EDT) Vitamin D 25-OH Total 31.1 >30 ng/mL [facility] Comment: Health Based Reference Values*< 20 ng/mL Dhbxiftsj81-52 ng/mL Insufficient> 30 ng/mL Sufficient*Ashely MERRITT. N [...] MD LAB BLOOD ORDERABLES Final Result [facility] [address] [place] [phone] * (ABNORMAL) T-SPOT??.TB (09/20/2024 10:33 AM EDT) T Spot TB Positive( A) Negative [facility] Comment: Diagnosing or excluding tuberculosis (TB) [...] aquantitative test. TS PANEL A 38 [facility] TS PANEL B 38 [facility] Negative Control Passed [facility] Positive Control Passed [facility] Comment:For additional infor brian, please refer [email or web address].beStylish.com/[email or web address](This link is being provided for informational/educational purposes only.)REPORT COMMENT:REC'D AT [facility] TEST WAS PERFORMED AT:[employer] [id number] [place] [address]ONJYPPOMARKO KAISER MD,PHD 09/20/2024 10:3 3 AM EDT 09/20/2024 11:05 AM EDT Narrative [facility] - 09/24/2024 1:28 AM EDT RESULTS, AND CALLED [employer] AT [phone]. us Victorina Medina MD LAB BLOOD ORDERABLES Final Result Performing Organization Address City/[facility]/ZIP Co de Phone Number [facility] [address] [place] [address] [phone] * TSH with Reflex to Free T4 (09/20/2024 10:33 AM EDT) [facility] TSH reflex Free T4 0.54 0.32 - 4.0 uIU/mL [facility] Blood Venous blood specimen / Unknown 09/20/2024 10:33 AM EDT 09/20/2024 11:05 AM EDT us Victorina Medina MD LAB BLOOD ORDERABLES Final Result Performing Organization Address [facility] Co de Phone Number [facility] [address] [place] [phone] * (ABNORMAL) CBC auto differential (09/20/2024 10:33 AM EDT) [facility] White Blood Count 4.9 4.8 - 10.8 X10*3/uL [facility] Red Blood Count 4.06(L) 4.20 - 5.50 X10*6/uL [facility] Hemoglobin 11.4(L) 12.0 - 16.0 g/dl [facility] Hematocrit 35.2(L) 37.0 - 47.0 % [facility] Mean Corpuscular Volume 86.7 80.0 - 98.0 fL [facility] Mean Corpuscular Hemoglobin 28.1 27.0 - 33.0 pg [facility] Mean Corpuscular HGB Conc 32.4 31.0 - 35.0 g/dl [facility] Red Cell Distribution Width 13.3 11.0 - 16.0 % [facility] Platelet Count 346 160 - 400 X10*3/uL [facility] Mean Platelet Volume 10.8 9.4 - 12.3 fL [facility] Neutrophils Percent Auto 41.8(L) 45 - 73 % [facility] Imm Gran Pct Auto 0.0 0.0 - 0.4 % [facility] Lymphocytes Percent Auto 44.5(H) 20 - 40 % [facility] Monocytes Percent Auto 8.0 2 - 11 % [facility] Eosinophils Percent Auto 4.9(H) 0 - 4 % [facility] Basophils Percent Auto 0.8 0 - 2 % [facility] NRBC Pct Auto 0.0 0.0 - 0.2 /100WBC [facility] Neutrophils Absolute Auto 2.0 2.0 - 8.3 x10*3/uL [facility] Imm Gran Abs Auto 0.00 0.00 - 0.03 X10*3/uL [facility] Lymphocytes Absolute Auto 2.2 1.2 - 4.9 X10*3/uL [facility] Monocytes Absolute Auto 0.4 0.1 - 1.2 X10*3/uL [facility] Eosinophils Absolute Auto 0.2 0.0 - 0.4 X10*3/uL [facility] Basophils Absolute Auto 0.0 0.0 - 0.2 X10*3/uL [facility] NRBC Abs Auto 0.000 0.0 - 0.012 X10*3/uL [facility] Blood Venous blood specimen / Unknown 09/20/2024 10:33 AM EDT 09/20/2024 11:05 AM EDT Victorina Medina MD LAB BLOOD ORDERABLES Final Result [facility] [address] [place] [phone] * Hepatitis C Antibody with Reflex to HCV, RNA, Quantitative, Real-Time PCR (09/20/2024 10:33 AM EDT) Hepatitis C Antibody Nonreactive Nonreactive [facility] Comment:Antibodies to HCV no t detected; does not exclude early acuteHCV infection. Blood Venous blood specimen / Unknown 09/20/2024 10:33 AM EDT 09/20/2024 11:05 AM EDT us Victorina Medina MD LAB BLOOD ORDERABLES Final Result Performing Organization Address [facility] Co de Phone Number [facility] [address] [place] [address] [phone] * HIV-1/2 Antigen and Antibodies, Fourth Generation, with Reflexes (09/20/2024 10:33 AM EDT) Pathologist [facility] HIV AB/AG Nonreactive Nonreactive [facility] Comment:HIV-1 p24 Ag and/or HIV-1/HIV-2 Ab not detected.A test result that is nonreactive does not exclude thepossibility of exposure to or infection with HIV-1 and/orHIV-2. Nonreactive results in this assay for individualswith prior exposure to HIV-1 and/or HIV-2 may be due toantigen and antibody levels that are below the limit ofdetection of this assay.The [employer] HIV Ag/Ab Combo assay result andsupplemental assay results should be interpreted inconjunction with the patient's clinical presentation,history and other laboratory results. If the results areinconsistent with clinical evidence, additional testing issuggested to confirm the result. Blood Venous blood specimen / Unknown 09/20/2024 10:33 AM EDT 09/20/2024 11:05 AM EDT us Victorina Medina MD LAB BLOOD ORDERABLES Final Result Performing Organization Address City[facility]/ZIP Co de Phone Number [facility] [address] [place] [phone] * Hemoglobin A1c (09/20/2024 10:33 AM EDT) Pathologist [facility] Hemoglobin A1c 5.3 <6.0 % [facility] Comment:Hemoglobin A1C Refer ence Range Adults: 4.8 - 6.0 % Non diabetic: < 6.0 % Goal: < 7.0 %Additional Action Suggested: > 8.0 %Note: Hemoglobin A1c results are invalid for patients with abnormal amounts of HbF. Blood transfusions may impact the HbA1c concentration in the patient sample. Estimated Average Glucose 105 mg/dL [facility] Comment:eAG = Estimated ave rage glucose which is %A1C expressed asaverage glucose, using the formula of the F4X-BbydboiZwbpkbv Glucose study (ADAG), Diabetes Care, Vol.31,#8,Oct. 2007 Blood Venous blood specimen / Unknown 09/20/2024 10:33 AM EDT 09/20/2024 11:05 AM EDT us Victorina Medina MD LAB BLOOD ORDERABLES Final Result [facility] [address] [place] [phone] * (ABNORMAL) Lipid Panel, Standard (09/20/2024 10:33 AM EDT) Triglycerides 74 <150 mg/dL [facility] Comment:Desirable Triglyceri de: less than 150 mg/dLBorderline High Triglyceride 150-199 mg/dLHigh Triglyceride: 200-499 mg/dLVery High Triglyceride: greater than or equal to 5OO mg/dL Cholesterol 251(H) <200 mg/dL [facility] Comment:Desirable Cholestero l: less than 200 mg/dLBorderline High Cholesterol: 200-239 mg/dLHigh Cholesterol: greater than 239 mg/dL LDL Cholesterol Calculated 172(H) <100 mg/dL [facility] Comment:Desirable LDL: less than 100 mg/dLNear Optimal/Above Optimal LDL: 110- 129 mg/dLBorderline High LDL: 130-159 mg/dLHigh LDL: 160-189 mg/dLVery High LDL: greater than or equal to 190 mg/dL HDL Cholesterol 65 >40 mg/dL [facility] Comment:Desirable HDL: great er than 40 mg/dL Note: This HDL assay may give artificially low results in patients with liver disease. Blood Venous blood specimen / Unknown 09/20/2024 10:33 AM EDT 09/20/2024 11:05 AM EDT us Victorina Medina MD LAB BLOOD ORDERABLES Final Result [facility] [address] [place] [phone] * (ABNORMAL) Comprehensive Metabolic Panel (09/20/2024 10:33 AM EDT) Sodium 139 135 - 145 mmol/L [facility] Potassium 3.7 3.3 - 5.1 mmol/L [facility] Chloride 104 96 - 108 mmol/L [facility] Carbon Dioxide 28 22 - 29 mmol/L [facility] Anion Gap 11(L) 12 - 20 [facility] Urea Nitrogen (BUN) 15 9 - 16 mg/dL [facility] Creatinine, Serum 0.62 0.5 - 1.4 mg/dL [facility] Estimated Glomerular Filt Rate >60 [facility] Comment:Chronic Kidney Disea se: Estimated GFR < 60 mL/min/1.61m0Bsbcsx Kidney Disease: Estimated GFR < 15 mL/min/1.73m2 Glucose 85 60 - 115 mg/dL [facility] Calcium 9.3 8.4 - 10.2 mg/dL [facility] Bilirubin, Total 0.5 0.0 - 1.0 mg/dL [facility] Aspartate Amino Transferase 24 5 - 31 U/L [facility] Alanine Aminotransferase 22 0 - 31 U/L [facility] Total Protein 7.4 6.5 - 8.0 g/dL [facility] Albumin Level 4.8 3.5 - 5.0 g/dL [facility] Alkaline Phosphatase 60 39 - 117 U/L [facility] Blood Venous blood specimen / Unknown 09/20/2024 10:33 AM EDT 09/20/2024 11:05 AM EDT us Victorina Medina MD LAB BLOOD ORDERABLES Final Result [facility] [address] [place] [phone] from Last 3 Months Insurance HSN PARTIAL Care Teams Hrbp Relationship Specialty Start Date End Date Victorina De La Torre MD [address] [place] [phone] PCP - General Internal Medicine 09/20/24
== END 2024-11-16 16:21 | disposition home or self-care (01) ==
LOC: HO.HHCLNP 16:20
PROVIDERS: Visit Provider Family Medicine
DX: R30.0 Dysuria (principal)
CPT/HCPCS: 87086

== ENCOUNTER 2024-11-21 11:32 | Outpatient (REF) | payer MEDICAID, SELFPAY ==
[2024-11-21 13:24] LABS: MANUAL DIFF FLAG NO
[2024-11-21 13:33] LABS: Hematocrit 32.9 % (37.0-47.0); Hemoglobin 10.6 g/dl (12.0-16.0); Imm Gran Abs Auto 0.01 X10*3/uL (0.00-0.03); Imm Gran Pct Auto 0.2 % (0.0-0.4); Lymphocytes Absolute Auto 2.8 X10*3/uL (1.2-4.9); Mean Corpuscular HGB Conc 32.2 g/dl (31.0-35.0); Mean Corpuscular Hemoglobin 26.6 pg (27.0-33.0); Mean Corpuscular Volume 82.5 fL (80.0-98.0); NRBC Abs Auto 0.000 X10*3/uL (0.0-0.012); NRBC Pct Auto 0.0 /100WBC (0.0-0.2); Platelet Count 331 X10*3/uL (160-400); Red Blood Count 3.99 X10*6/uL (4.20-5.50); White Blood Count 5.3 X10*3/uL (4.8-10.8)
[2024-11-21 14:07] LABS: Alanine Aminotransferase 16 U/L (0-31); Albumin Level 4.6 g/dL (3.5-5.0); Alkaline Phosphatase 57 U/L (39-117); Anion Gap 11 (12-20); Aspartate Amino Transferase 21 U/L (5-31); Blood Urea Nitrogen 11 mg/dL (9-16); Calcium 9.3 mg/dL (8.4-10.2); Carbon Dioxide 24 mmol/L (22-29); Chloride 108 mmol/L (96-108); Estimated Glomerular Filt Rate > 60; Potassium 5.1 mmol/L (3.3-5.1); Sodium 138 mmol/L (135-145); Total Protein 7.4 g/dL (6.5-8.0)
[2024-11-21 14:20] LABS: Cholesterol 265 mg/dL (<200); HDL Cholesterol 59 mg/dL (>40); Triglycerides 110 mg/dL (<150)
== END 2024-11-21 11:33 | disposition home or self-care (01) ==
LOC: HO.HHCL 11:32
PROVIDERS: PCP Internal Medicine; Referring Provider Family Medicine; Visit Provider Internal Medicine
DX: E78.5 Hyperlipidemia, unspecified (principal); R10.2 Pelvic and perineal pain
CPT/HCPCS: 36415; 80048; 80061; 80076; 82550; 85025

== ENCOUNTER 2024-11-29 09:07 | Outpatient (REF) | payer SELFPAY ==
--- OUTSIDE RECORDS SUMMARY | 2024-11-27 10:45 | XMS_ITS | Encounter Summary ---
Author Organization [employer] Address [address] [place] [address] Care Team Providers Care Superintendent Board Mill Name Role Phone Victorina De La Torre MD Primary Care Provide r Reason for Referral * Consultation (Routine) - Pending Review Specialty Diagnoses / Procedures Referred By Contnasim t Referred To Contact Obstetrics and Gynecology Diagnoses Metrorrhagia Victorina De La Torre MD [address] [place] [phone] Phone: tel: fax: Referral ID Status Reason Start Date Expiration Date Visits Requested Visits Authorized [id number] Pending Review Specialty Services Required 11/27/2024 11/27/2025 1 1 Reason for Visit * Reason Comments televisit Encounter Details Date Type Department Care Team (Latest Contact Info) Description 11/27/2024 10:45 AM EDT Telemedicine [facility] [address] [place] [phone] Victorina De La Torre MD [address] [place] [address] [phone] Polyarthralgia; Chronic nonintractable headache, unspecified headache type; Anemia, unspecified type; Chronic migraine with aura without status migrainosus, not intractable; Metrorrhagia Social History Tobacco Use Types Packs/Day Years [...] AM EDT documented as of this encounter Progress Notes * Victorina Medina MD - 11/27/2024 10:45 AM EDT SUBJECTIVE: Ayleen Beth is a 39 y.o. year old female who presents for Follow up . Acute Concerns: Patient reports she was having headaches every day, headaches are triggered with her menstrual period, she also reports sometimes floaters and lights, she can not identify if light or noise makes headache worse, sometimes she has nausea with headache, she was seen at [facility] duloxetine is discontinue and amitriptyline 10mg was started, she tells me since then she has being feeling much better regarding headaches and energy Patient reports she has being having pain on her joints more on her hands, reports her hands feel stiff on morning she needs few minutes for them to be better Labs where reviewed with patient I let her know her cholesterol is a little high Social History Social History Narrative Not on file Problem List[1] Chronic headache Constipation Anxiety Cervicalgia Metrorrhagia Tuberculosis screening Polyarthralgia Anemia Chronic migraine with aura without status migrainosus, not intractable Family History[2] Review of Systems Constitutional: Negative. HENT: Negative. Respiratory: Negative. Cardiovascular: Negative. Neurological: Positive for headaches. Negative for dizziness, tremors, seizures, syncope, facial asymmetry, speech difficulty, weakness, light-headedness and numbness. Follow Up: Follow up in about 3 months (around 02/26/2025) for migraine headaches. Medications Ordered Prior to Encounter[3] Problem List Items Addressed This Visit Polyarthralgia Blood work ordered patient will be contacted with results Acetaminophen as needed Relevant Orders C-reactive Protein Cyclic Citrullinated Peptide (CCP) Antibody (IgG) Sed Rate by Modified [place]gren ROBERTO Screen,IFA, with Reflex to Titer and Pattern Chronic headache Relevant Medications SUMAtriptan (Imitrex) 25 MG tablet Anemia Blood work ordered Ferrous gluconate 324mg every other day plus vitamin C Relevant Medications ascorbic acid (Vitamin C) 500 MG tablet ferrous gluconate (Fergon) 324 (38 Fe) MG tablet Other Relevant Orders Ferritin Iron And Total Iron Binding Capacity Vitamin B12/Folate, Serum Panel Chronic migraine with aura without status migrainosus, not intractable I advise to avoid migraine triggers like red wine, chocolate, cheese, strong perfumes Relevant Medications SUMAtriptan (Imitrex) 25 MG tablet Metrorrhagia Patient with anemia, reports heavy periods I will refer her to [employer]GER Relevant Medications ferrous gluconate (Fergon) 324 (38 Fe) MG tablet Other Relevant Orders Referral to Obstetrics / Gynecology [1] Patient Active Problem List Diagnosis Chronic headache Constipation Anxiety Cervicalgia Metrorrhagia Tuberculosis screening Polyarthralgia Anemia Chronic migraine with aura without status migrainosus, not intractable [2] No family history on file. [3] Current Outpatient Medications on File Prior to Visit Medication Sig Dispense Refill amitriptyline (Elavil) 10 MG tablet Take 1 tablet (10 mg) by mouth at bedtime. (Discontinue Duloxetine) 30 tablet 2 [] fluconazole (Diflucan) 150 MG tablet Take 1 tablet (150 mg) by mouth Once per day for 1 day. 1 tablet 0 [] ibuprofen 600 MG tablet Take 1 tablet (600 mg) by mouth 3 times daily. 90 tablet 0 [DISCONTINUED] DULoxetine (Cymbalta) [address] capsule Take 1 capsule (30 mg) by mouth Once per day.Do not crush or chew. 30 capsule 0 No current facility-administered medications on file prior to visit. documented in this encounter Miscellaneous Notes * Assessment & Plan Note - Victorina Medina MD - 11/27/2024 12:52 PM EDT Associated Problem(s): Chronic migraine with aura without status migrainosus, not intractable I advise to avoid migraine triggers like red wine, chocolate, cheese, strong perfumes * Assessment & Plan Note - Victorina Medina MD - 11/27/2024 12:52 PM EDT Associated Problem(s): Polyarthralgia Blood work ordered patient will be contacted with results Acetaminophen as needed * Assessment & Plan Note - Victorina Medina MD - 11/27/2024 12:51 PM EDT Associated Problem(s): Anemia Blood work ordered Ferrous gluconate 324mg every other day plus vitamin C * Assessment & Plan Note - Victorina Medina MD - 11/27/2024 12:51 PM EDT Associated Problem(s): Metrorrhagia Patient with anemia, reports heavy periods I will refer her to [employer] documented in this encounter Plan of Treatment Scheduled Orders Name Type Priority Associated Diagnoses Orde r Schedule C-reactive Protein Lab Routine Polyarthralgia Expected: 11/27/2024 (Approximate), Expires: 11/27/2025 Cyclic Citrullinated Peptide (CCP) Antibody (IgG) Lab Routine Polyarthralgia Expected: 11/27/2024 (Approximate), Expires: 11/27/2025 Sed Rate by Modified Westergren Lab Routine Polyarthralgia Expected: 11/27/2024, Expires: 11/27/2025 ROBERTO Screen,IFA, with Reflex to Titer and Pattern Lab Routine Polyarthralgia Expected: 11/27/2024 (Approximate), Expires: 11/27/2025 Ferritin Lab Routine Anemia, unspecified type Expected: 11/27/2024, Expires: 11/27/2025 Iron And Total Iron Binding Capacity Lab Routine Anemia, unspecified type Expected: 11/27/2024, Expires: 11/27/2025 Vitamin B12/Folate, Serum Panel Lab Routine Anemia, unspecified type Expected: 11/27/2024, Expires: 11/27/2025 Scheduled Referrals Name Type Priority Associated Diagnoses Order Schedule Referral to Obstetrics / Gynecology Outpatient Referral Routine Metrorrhagia Expected: 11/27/2024 (Approximate), Expires: 11/27/2025 documented as of this encounter Visit Diagnoses Diagnosis Polyarthralgia Pain in joint, multiple sites Chronic nonintractable headache, unspecified headache type Anemia, unspecified type Chronic migraine with aura without status migrainosus, not intractable Metrorrhagia documented in this encounter Additional Health Concerns Assessment Noted Time PHQ-9 Depression Total Score: 0 09/21/19 25 9:11 AM EDT documented as of this encounter Care Teams Superintendent Board Mill Relationship Specialty Start Date End Date Victorina De La Torre MD [address] [place] [phone] PCP - General Internal Medicine 09/20/24 documented as of this encounter
--- OUTSIDE RECORDS SUMMARY | 2024-11-29 10:28 | XMS_ITS | Encounter Summary ---
Author Organization [employer] Address [address] [place] [address] Care Team Providers Care Magazine Feeder Name Role Phone Victorina De La Torre MD Primary Care Provide r Encounter Details Date Type Department Care Team (Latest Contact Info) Description 11/27/2024 Travel Social History Tobacco Use Types Packs/Day [...] as of this encounter Plan of Treatment Not on file documented as of this encounter Visit Diagnoses Not on filedocumented in this encounter Additional Health Concerns Assessment Noted Time PHQ-9 Depression Total Score: 0 09/21/19 9:11 AM EDT documented as of this encounter Care Teams Magazine Feeder Relationship Specialty Start Date End Date Victorina De La Torre MD [address] [place] [address] PCP - General Internal Medicine 09/20/24 documented as of this encounter
--- OUTSIDE RECORDS SUMMARY | 2024-11-29 10:28 | XMS_ITS | Clinical Summary ---
Author Organization [employer] Address [address] [place] [address] Care Team Providers Care Area Loss Prevention Manager Name Role Phone Victorina De La Torre MD Primary Care Provide r Allergies No known active allergies Medications amitriptyline (Elavil) 10 MG tabletIndications: Chronic nonintractable headache, unspecified headache type Take 1 tablet (10 mg) by mouth at bedtime. (Discontinu e Duloxetine) 30 tablet 2 11/17/19 25 025 Active ascorbic acid (Vitamin C) 500 MG tabletIndications: Anemia, unspecified type Take 1 tablet (500 mg) by mouth Once per day. 30 tablet 11 11/28/19 25 026 Active SUMAtriptan (Imitrex) 25 MG tabletIndications: Chronic migraine with aura without status migrainosus, not intractable Take 1 tablet (25 mg) by mouth 1 (one) time if needed for migraine for up to 1 dose. May repeat dose once in 2 hours if no relief. Do not exceed 2 doses in 24 hours. 9 tablet 11/28/19 25 Active ferrous gluconate (Fergon) 324 (38 Fe) MG tabletIndications: Anemia, unspecified type Take 1 tablet (324 mg) by mouth every other day. 15 tablet 2 11/28/19 25 Active amitriptyline (Elavil) 25 MG tablet Take by mouth at bedtime. 025 Discontinued polyethylene glycol, PEG, 3350 (Miralax) 17 g packet Take 17 g by mouth Once per day. 30 packet 3 08/13/19 25 025 Discontinued Sennosides (Senna) 8.6 MG capsule Take 1 capsule (8.6 mg) by mouth at bedtime. 90 capsule 08/13/19 25 025 Discontinued DULoxetine (Cymbalta) [address] capsule Take 1 capsule (30 mg) by mouth Once per day. Do not crush or chew. 30 capsule 10/24/19 25 025 Discontinued ibuprofen 600 MG tablet Take 1 tablet (600 mg) by mouth 3 times daily. 90 tablet 10/24/19 25 025 sulfamethoxazole-t rimethoprim (Bactrim DS) 800-160 MG tabletIndications: Suprapubic pain Take 1 tablet by mouth 2 times daily for 3 days. 6 tablet 11/17/19 25 025 fluconazole (Diflucan) 150 MG tabletIndications: Vaginal candidiasis Take 1 tablet (150 mg) by mouth Once per day for 1 day. 1 tablet 11/21/19 025 ferrous gluconate (Fergon) 324 (38 Fe) MG tabletIndications: Anemia, unspecified type Take 1 tablet (324 mg) by mouth with breakfast. 30 tablet 11 11/28/19 025 Discontinued Active Problems Problem Noted Date Diagnosed Date Polyarthralgia 11/27/2024 Assessment & Plan (11/27/2024 12:52 PM EDT): Blood work ordered patient will be contacted with results Acetaminophen as needed Anemia 11/27/2024 Assessment & Plan (11/27/2024 12:51 PM EDT): Blood work ordered Ferrous gluconate 324mg every other day plus vitamin C Chronic migraine with aura w ithout status migrainosus, not intractable 11/27/2024 Assessment & Plan (11/27/2024 12:52 PM EDT): I advise to avoid migraine triggers like red wine, chocolate, cheese, strong perfumes Chronic headache 09/20/2024 Assessment & Plan (10/23/2024 [...] as needed Metrorrhagia 09/20/2024 Assessment & Plan (11/27/2024 12:51 PM EDT): Patient with anemia, reports heavy periods I will refer her to [employer] Assessment & Plan (09/20/2024 12:23 PM EDT): Will continue to monitor for now Tuberculosis screening 09/20/2024 Assessment & Plan (09/20/2024 12:24 PM EDT): Patient reports tuberculosis test done previously was positive, but she was never treated I will repeat T spot, if positive I will refer patient to tuberculosis clinic Encounters Date Type Department Care Team Description 11/27/2024 10:45 AM EDT Telemedicine [facility] [address] [place] [address] Victorina De La Torre MD Polyarthralgia; Chronic nonintractable headache, unspecified headache type; Anemia, unspecified type; Chronic migraine with aura without status migrainosus, not intractable; Metrorrhagia 11/27/2024 Travel 11/21/2024 Orders Only [facility] [address] [place] [address] Victorina De La Torre MD Dyslipidemia (Primary Dx) 11/21/[address] [address] Victorina De La Torre MD Lab Orders 11/20/2024 Telephone [facility] WALK-IN [address] [address] Hector Edwards MD 11/16/2024 9:40 AM EDT [facility] [address] [address] Hector Edwards MD Chronic nonintractable headache, unspecified headache type (Primary Dx); Suprapubic pain 11/16/2024 Travel 10/23/2024 6:00 PM EDT [facility] [address] [address] Donovan Dumont MD Chronic nonintractable headache, unspecified headache type (Primary Dx) 10/23/2024 Travel 10/23/[address] [address] Victorina De La Torre MD Nurse Triage 09/26/2024 Results Follow-Up [address] [address] Victorina De La Torre MD XR Chest 2 Views 09/24/2024 Orders Only [address] [address] Victorina De La Torre MD Positive TB test (Primary Dx) 09/24/2024 Results Follow-Up [address] [address] Victorina De La Torre MD CBC auto differential, Comprehensive Metabolic Panel, Hemoglobin A1c, Additional followed-up results: 6 09/24/2024 Telephone [facility] [address] [place] [address] Victorina De La Torre MD 09/20/2024 9:30 AM EDT Office Visit [address] [address] Victorina De La Torre MD Chronic nonintractable headache, unspecified headache type (Primary Dx); Constipation, unspecified constipation type; Anxiety; Cervicalgia; Metrorrhagia; Tuberculosis screening 09/20/2024 Travel 09/19/2024 Telephone [facility] [address] [place], [place] [phone] Victorina De La Torre MD Chart Prep 09/13/2024 Patient Outreach [facility] [address] [place], [place] [phone] Victorina De La Torre MD Pre-visit Planning ([facility] unable to reach [place] ) from Last 3 Months Social History Tobacco [...] 10/23/2024 6:07 PM EDT Plan of Treatment Health Maintenance Due Date Last Done Comments Family Planning (PISQ) 1998 HPV Vaccines (1 - 3-dose series) 1998 DTaP/Tdap/Td Vaccines (1 - Tdap) 2002 Hepatitis B Vaccines (1 of 3 - 19+ 3-dose series) 2002 Pap Smear 2004 Cervical Cancer Screening 2013 HPV/Cotest 2013 Mammogram 2023 COVID-19 Vaccine ( - 2023-2 5 season) 2024 Influenza Vaccine (#1) 2024 Alcohol/Substance Use Screening 09/20/2025 09/20/2024 Depression Screening 09/20/2025 09/20/2024, 09/20/2024 SDOH Screening 09/20/2025 09/20/2024 Tobacco Screening 11/16/2025 11/16/2024 Disability Screening 11/27/2025 11/27/2024 Zoster Vaccines (1 of 2) 2033 RSV [...] Procedure Name Priority Date/Time Associated Diagnosis Comments CREATINE KINASE, TOTAL Routine 11/21/2024 12:34 PM EDT Dyslipidemia BASIC METABOLIC PANEL Routine 11/21/2024 12:34 PM EDT Dyslipidemia HEPATIC FUNCTION PANEL Routine 11/21/2024 12:34 PM EDT Dyslipidemia CBC WITH AUTO DIFFERENTIAL Routine 11/21/2024 12:34 PM EDT Dyslipidemia LIPID PANEL, STANDARD Routine 11/21/2024 12:34 PM EDT Dyslipidemia POCT URINALYSIS DIPSTICK Routine 11/16/2024 9:36 AM EDT Suprapubic pain CULTURE, URINE, ROUTINE Routine 11/16/2024 12:00 AM EDT Positive TB test XR CHEST 2 VIEWS Routine 09/26/2024 8:50 [...] type from Last 3 Months Results * (ABNORMAL) CBC auto differential (11/21/2024 12:34 PM EDT) Only the most recent of2 resultswithin the time period is included. White Blood Count 5.3 4.8 - 10.8 X10*3/uL [facility] Red Blood Count 3.99(L) 4.20 - 5.50 X10*6/uL [facility] Hemoglobin 10.6(L) 12.0 - 16.0 g/dl [facility] Hematocrit 32.9(L) 37.0 - 47.0 % [facility] Mean Corpuscular Volume 82.5 80.0 - 98.0 fL [facility] Mean Corpuscular Hemoglobin 26.6(L) 27.0 - 33.0 pg [facility] Mean Corpuscular HGB Conc 32.2 31.0 - 35.0 g/dl [facility] Red Cell Distribution Width 13.9 11.0 - 16.0 % [facility] Platelet Count 331 160 - 400 X10*3/uL [facility] Mean Platelet Volume 11.0 9.4 - 12.3 fL [facility] Neutrophils Percent Auto 35.0(L) 45 - 73 % [facility] Imm Gran Pct Auto 0.2 0.0 - 0.4 % [facility] Lymphocytes Percent Auto 52.5(H) 20 - 40 % [facility] Monocytes Percent Auto 7.3 2 - 11 % [facility] Eosinophils Percent Auto 4.1(H) 0 - 4 % [facility] Basophils Percent Auto 0.9 0 - 2 % [facility] NRBC Pct Auto 0.0 0.0 - 0.2 /100WBC [facility] Neutrophils Absolute Auto 1.9(L) 2.0 - 8.3 x10*3/uL [facility] Imm Gran Abs Auto 0.01 0.00 - 0.03 X10*3/uL [facility] Lymphocytes Absolute Auto 2.8 1.2 - 4.9 X10*3/uL [facility] Monocytes Absolute Auto 0.4 0.1 - 1.2 X10*3/uL [facility] Eosinophils Absolute Auto 0.2 0.0 - 0.4 X10*3/uL [facility] Basophils Absolute Auto 0.1 0.0 - 0.2 X10*3/uL [facility] NRBC Abs Auto 0.000 0.0 - 0.012 X10*3/uL [facility] 11/21/2024 12:3 4 PM EDT 11/21/2024 1:21 PM EDT us Victorina Medina MD LAB BLOOD ORDERABLES Final Result Performing Organization Address City/[facility]/ZIP Co de Phone Number [facility] [address] [place] [address] [phone] * Creatine Kinase, Total (11/21/2024 12:34 PM EDT) Creatine Kinase Total 58 26 - 140 U/L [facility] 11/21/2024 12:3 4 PM EDT 11/21/2024 1:21 PM EDT Victorina Medina MD LAB BLOOD ORDERABLES Final Result Performing Organization Address [facility] de Phone Number [facility] [address] [place] [phone] * Hepatic Function Panel (11/21/2024 12:34 PM EDT) Bilirubin, Total 0.3 0.0 - 1.0 mg/dL [facility] Bilirubin, Direct 0.1 0.0 - 0.5 mg/dL [facility] Aspartate Amino Transferase 21 5 - 31 U/L [facility] Alanine Aminotransferase 16 0 - 31 U/L [facility] Total Protein 7.4 6.5 - 8.0 g/dL [facility] Albumin Level 4.6 3.5 - 5.0 g/dL [facility] Alkaline Phosphatase 57 39 - 117 U/L [facility] 11/21/2024 12:3 4 PM EDT 11/21/2024 1:21 PM EDT Victorina Medina MD LAB BLOOD ORDERABLES Final Result Performing Organization Address [facility] Co de Phone Number [facility] [address] [place] [phone] * (ABNORMAL) Lipid Panel, Standard (11/21/2024 12:34 PM EDT) Only the most recent of2 resultswithin the time period is included. Triglycerides 110 <150 mg/dL [facility] Comment:Desirable Triglyceri de: less than 150 mg/dLBorderline High Triglyceride 150-199 mg/dLHigh Triglyceride: 200-499 mg/dLVery High Triglyceride: greater than or equal to 5OO mg/dL Cholesterol 265(H) <200 mg/dL [facility] Comment:Desirable Cholestero l: less than 200 mg/dLBorderline High Cholesterol: 200-239 mg/dLHigh Cholesterol: greater than 239 mg/dL LDL Cholesterol Calculated 184(H) <100 mg/dL [facility] Comment:Desirable LDL: less than 100 mg/dLNear Optimal/Above Optimal LDL: 110- 129 mg/dLBorderline High LDL: 130-159 mg/dLHigh LDL: 160-189 mg/dLVery High LDL: greater than or equal to 190 mg/dL HDL Cholesterol 59 >40 mg/dL [facility] Comment:Desirable HDL: great er than 40 mg/dL Note: This HDL assay may give artificially low results in patients with liver disease. Blood Venous blood specimen / Unknown 11/21/2024 12:34 PM EDT 11/21/2024 1:21 PM EDT us Victorina Medina MD LAB BLOOD ORDERABLES Final Result [facility] [address] [place], [place] [phone] * (ABNORMAL) Basic Metabolic Panel (11/21/2024 12:34 PM EDT) Sodium 138 135 - 145 mmol/L [facility] Potassium 5.1 3.3 - 5.1 mmol/L [facility] Chloride 108 96 - 108 mmol/L [facility] Carbon Dioxide 24 22 - 29 mmol/L [facility] Anion Gap 11(L) 12 - 20 [facility] Urea Nitrogen (BUN) 11 9 - 16 mg/dL [facility] Creatinine, Serum 0.64 0.5 - 1.4 mg/dL [facility] Estimated Glomerular Filt Rate >60 [facility] Comment:Chronic Kidney Disea se: Estimated GFR < 60 mL/min/[id number] Kidney Disease: Estimated GFR < 15 mL/min/1.73m2 Glucose 83 60 - 115 mg/dL [facility] Calcium 9.3 8.4 - 10.2 mg/dL [facility] 11/21/2024 12:3 4 PM EDT 11/21/2024 1:21 PM EDT us Victorina Medina MD LAB BLOOD ORDERABLES Final Result [facility] [address] [place] [phone] * POCT urinalysis dipstick manually resulted (11/16/2024 [...] TEST ENTER/EDIT OR DERABLES Final Result * Culture, Urine, Routine (11/16/2024 12:00 AM EDT) Urine Urine specimen obtained by clean catch procedure / Unknown 11/16/2024 11/16/2024 Comment:UACC Narrative [facility] - 11/18/2024 9:49 AM EDT Urine Culture No growth. Specimen Source: Urine clean catch Hector Edwards MD LAB MICROBIOLOGY - GENERAL ORDER LORA Final Result [facility] [address] [place] [phone] [phone] * XR Chest 2 Views (09/26/2024 8:50 AM EDT) Anatomical Region Laterality Modality Chest Radiographic [place] ging 09/26/2024 8:50 AM EDT Narrative 09/26/2024 9:20 AM EDT [address] [address] XRay Report Signed Patient: Ayleen Kapadia R#: [id number] : 1985 Acct:[id number] Age/Sex: 39 / F ADM Date: 09/26/24 Loc: HO.HHCX Attending Dr: Victorina Medina MD Ordering Physician: Victorina De La Torre MD Date of Service: 09/26/24 Procedure(s): XR chest 2V Accession Number(s): [id number] cc: Victorina De La Torre MD EXAMINATION: XR CHEST CLINICAL INFORMATION: TB COMPARISON: None available. TECHNIQUE: 2 views of the chest were obtained. FINDINGS: No consolidation, pleural effusion or pneumothorax. Cardiomediastinal silhouette size is normal. Mild multilevel thoracic spondylosis. Hyperinflated lungs. XR/XR chest 2V IMPRESSION: Hyperinflated lungs without acute airspace disease. Electronically signed by: Adiel Mason MD 09/26/2024 09:17 AM EDT Dictated By: Adiel Vann MD Signed By: <Electronically signed by Adiel Sotelo MD in OV> 09/26/[address] DD/ 0850 TD/TT: 09/26/24 0900 Cash Posting Representative: Procedure Note Donotuseinterpreter, Image - 09/26/[address] [address] XRay Report Signed Patient: Ayleen Kapadia R#: [id number] : 1985Acct:[id number] Age/Sex: 39 / FADM Date: 09/26/24 Loc: HO.HHCX Attending Dr: Victorina Medina MD Ordering Physician: Victorina De La Torre MD Date of Service: 09/26/24 Procedure(s): XR chest 2V Accession Number(s): [id number] cc: Victorina De La Torre MD EXAMINATION: [...] <Electronically signed by Adiel Sotelo MDin OV> 09/26/2417 DD/ 0850 TD/TT: 09/26/24 0900 Cash Posting Representative: Victorina Medina MD IMG XR PROCEDURES Fin al Result * Vitamin D, 25-Hydroxy, Total, Immunoassay (09/20/2024 10:33 AM EDT) Vitamin D 25-OH Total 31.1 >30 ng/mL [facility] Comment: Health Based Reference Values*< 20 ng/mL [id number] ng/mL Insufficient> 30 ng/mL Sufficient*Ashely MERRITT. N [...] Medina MD LAB BLOOD ORDERABLES Final Result [facility] [address] [place] [phone] * (ABNORMAL) T-SPOT??.TB (09/20/2024 10:33 AM EDT) T Spot TB Positive( A) Negative [facility] Comment: Diagnosing or excluding tuberculosis (TB) [...] as aquantitative test. TS PANEL A 38 [facility] TS PANEL B 38 [facility] Negative Control Passed [facility] Positive Control Passed [facility] Comment:For additional infor brian, please refer tohttp://education.Fio/faq/AAU498(This link is being provided for informational/educational purposes only.)REPORT COMMENT:REC'D AT [facility] TEST WAS PERFORMED AT:[facility] [id number] [place] [phone] KAISER MD,PHD 09/20/2024 10:3 3 AM EDT 09/20/2024 11:05 AM EDT Narrative [facility] - 09/24/2024 1:28 AM EDT RESULTS, AND CALLED MYRIAM AT [phone]. us Victorina Medina MD LAB BLOOD ORDERABLES Final Result Performing Organization Address City/[facility]/ZIP Co de Phone Number [facility] [address] [place] [phone] * TSH with Reflex to Free T4 (09/20/2024 10:33 AM EDT) TSH reflex Free T4 0.54 0.32 - 4.0 uIU/mL [facility] Blood Venous blood specimen / Unknown 09/20/2024 10:33 AM EDT 09/20/2024 11:05 AM EDT us Victorina Medina MD LAB BLOOD ORDERABLES Final Result Performing Organization Address City/[facility]/ZIP Co de Phone Number [facility] [address] [place] [phone] * Hepatitis C Antibody with Reflex to HCV, RNA, Quantitative, Real-Time PCR (09/20/2024 10:33 AM EDT) Hepatitis C Antibody Nonreactive Nonreactive [facility] Comment:Antibodies to HCV no t detected; does not exclude early acuteHCV infection. Blood Venous blood specimen / Unknown 09/20/2024 10:33 AM EDT 09/20/2024 11:05 AM EDT us Victorina Medina MD LAB BLOOD ORDERABLES Final Result Performing Organization Address City/[facility]/ZIP Co de Phone Number [facility] [address] [place] [phone] * HIV-1/2 Antigen and Antibodies, Fourth Generation, with Reflexes (09/20/2024 10:33 AM EDT) HIV AB/AG Nonreactive Nonreactive [facility] Comment:HIV-1 p24 Ag and/or HIV-1/HIV-2 Ab not detected.A test result that is nonreactive does not exclude thepossibility of exposure to or infection with HIV-1 and/orHIV-2. Nonreactive results in this assay for individualswith prior exposure to HIV-1 and/or HIV-2 may be due toantigen and antibody levels that are below the limit ofdetection of this assay.The GPMESS HIV Ag/Ab Combo assay result andsupplemental assay results should be interpreted inconjunction with the patient's clinical presentation,history and other laboratory results. If the results areinconsistent with clinical evidence, additional testing issuggested to confirm the result. Blood Venous blood specimen / Unknown 09/20/2024 10:33 AM EDT 09/20/2024 11:05 AM EDT us Victorina Medina MD LAB BLOOD ORDERABLES Final Result Performing Organization Address City/[facility]/ZIP Co de Phone Number [facility] [address] [place] [phone] * Hemoglobin A1c (09/20/2024 10:33 AM [...] patient sample. Estimated Average Glucose 105 mg/dL [facility] Comment:eAG = Estimated ave rage glucose which is %A1C expressed asaverage glucose, using the formula of the [id number] Glucose study (ADAG), Diabetes Care, Vol.31,#8,Oct. 2007 Blood Venous blood specimen / Unknown 09/20/2024 10:33 AM EDT 09/20/2024 11:05 AM EDT us Victorina Medina MD LAB BLOOD ORDERABLES Final Result [facility] [address] [place] [phone] * (ABNORMAL) Comprehensive Metabolic Panel (09/20/2024 10:33 AM EDT) Sodium 139 135 - 145 mmol/L [facility] Potassium 3.7 3.3 - 5.1 mmol/L [facility] Chloride 104 96 - 108 mmol/L [facility] Carbon Dioxide 28 22 - 29 mmol/L [facility] Anion Gap 11(L) 12 - 20 [facility] Urea Nitrogen (BUN) 15 9 - 16 mg/dL [facility] Creatinine, Serum 0.62 0.5 - 1.4 mg/dL [facility] Estimated Glomerular Filt Rate >60 [facility] Comment:Chronic Kidney Disea se: Estimated GFR < 60 mL/min/[id number] Kidney Disease: Estimated GFR < 15 mL/min/1.73m2 Glucose 85 60 - 115 mg/dL [facility] Calcium 9.3 8.4 - 10.2 mg/dL [facility] Bilirubin, Total 0.5 0.0 - 1.0 mg/dL [facility] Aspartate Amino Transferase 24 5 - 31 U/L [facility] Alanine Aminotransferase 22 0 - 31 U/L [facility] Total Protein 7.4 6.5 - 8.0 g/dL [facility] Albumin Level 4.8 3.5 - 5.0 g/dL [facility] Alkaline Phosphatase 60 39 - 117 U/L [facility] Blood Venous blood specimen / Unknown 09/20/2024 10:33 AM EDT 09/20/2024 11:05 AM EDT us Victorina Medina MD LAB BLOOD ORDERABLES Final Result [facility] [address] [place] [phone] from Last 3 Months Insurance [facility] Care Teams Area Loss Prevention Manager Relationship Specialty Start Date End Date Victorina De La Torre MD [address] [place] [address] PCP - General Internal Medicine 09/20/24
[2024-11-29 12:11] LABS: Iron 28 mcg/dL (30-160); Percent Iron Saturation 8 % (15-50); Total Iron Binding Capacity 348 mcg/dL (228-428); Unsaturated Iron Binding 320 ug/dL
[2024-11-29 12:22] LABS: Ferritin 8 ng/mL (10-250)
[2024-11-29 12:30] LABS: Vitamin B12 787 pg/mL (200-900)
[2024-12-04 11:08] LABS: Anti Nuclear Antibody Pattern Nuclear, Homogeneous; Anti Nuclear Antibody Screen POSITIVE (NEGATIVE); Anti Nuclear Antibody Titer 1:80 titer
== END 2024-11-29 09:08 | disposition home or self-care (01) ==
LOC: HO.HHCL 09:07
PROVIDERS: PCP Internal Medicine; Visit Provider Internal Medicine
DX: Z01.84 Encounter for antibody response examination (principal); Z13.89 Encounter for screening for other disorder
CPT/HCPCS: 36415; 82607; 82728; 83540; 85652; 86038; 86039; 86140; 86200

== ENCOUNTER 2024-12-13 09:53 | Outpatient (REF) | payer SELFPAY ==
--- OUTSIDE RECORDS SUMMARY | 2024-12-13 09:30 | XMS_ITS | Encounter Summary ---
Author Organization [employer] Address [address] [place] [address] Care Team Providers Care Galvanizing Pot Runner Name Role Phone Victorina De La Torre MD Primary Care Provide r Encounter Details Date Type Department Care Team (Latest Contact Info) Description 12/13/2024 9:30 AM EDT Clinical Support [facility] [address] [place], [place] [phone] Megan Tidwell RN Encounter for immunization Social History Tobacco Use Types Packs/Day Years [...] Care Team (Late st Contact Info) Description 12/26/2024 8:00 AM EDT Office Visit [facility] ADULT DENTAL [address] [place] [address] documented as of this encounter Visit Diagnoses Diagnosis Encounter for immunization documented in this encounter Additional Health Concerns Assessment Noted Time PHQ-9 Depression Total Score: 0 09/21/19 9:11 AM EDT documented as of this encounter Care Teams Galvanizing Pot Runner Relationship Specialty Start Date End Date Victorina De La Torre MD [address] [place] [address] PCP - General Internal Medicine 09/20/24 documented as of this encounter
--- OUTSIDE RECORDS SUMMARY | 2024-12-13 11:50 | XMS_ITS | Encounter Summary ---
Author Organization [email or web address] Address [address] [place] [address] Care Team Providers Care Flanging Machine Operator Name Role Phone Victorina De La Torre MD Primary Care Provide r Encounter Details Date Type Department Care Team ([facility] st Contact Info) Description 12/04/2024 Orders Only [facility] [address] [place], [place] [phone] Victorina De La Torre MD [address] [place], [place] [phone] Screening examination for STI (Primary Dx) Social History Tobacco Use Types Packs/Day Years [...] Description 12/26/2024 8:00 AM EDT Office Visit [facility] ADULT [facility] [address] [place] [address] Scheduled Orders Name Type Priority Associated Diagnoses Orde r Schedule RPR (Monitor) with Reflex to Titer Lab Routine Screening examination for STI Expected: 12/11/2024, Expires: 12/11/2025 documented as of this encounter Visit Diagnoses Diagnosis Screening examination for STI- Primary documented in this encounter Additional Health Concerns Assessment Noted Time PHQ-9 Depression Total Score: 0 09/21/19 9:11 AM EDT documented as of this encounter Care Teams Flanging Machine Operator Relationship Specialty Start Date End Date Victorina De La Torre MD [address] [place] [address] PCP - General Internal Medicine 09/20/24 documented as of this encounter
--- OUTSIDE RECORDS SUMMARY | 2024-12-13 11:50 | XMS_ITS | Encounter Summary ---
Author Organization [employer] Address [address] [place] [address] Care Team Providers Care Ammonium Nitrate Crystallizer Name Role Phone Victorina De La Torre MD Primary Care Provide r Encounter Details Date Type Department Care Team (Latest Contact Info) Description 12/13/2024 Travel Social History Tobacco Use Types Packs/Day [...] Description 12/26/2024 8:00 AM EDT Office Visit [facility] [address] [place] [address] documented as of this encounter Visit Diagnoses Not on filedocumented in this encounter Additional Health Concerns Assessment Noted Time PHQ-9 Depression Total Score: 0 09/21/19 9:11 AM EDT documented as of this encounter Care Teams Ammonium Nitrate Crystallizer Relationship Specialty Start Date End Date Victorina De La Torre MD [address] [place] [address] PCP - General Internal Medicine 09/20/24 documented as of this encounter
--- OUTSIDE RECORDS SUMMARY | 2024-12-13 11:50 | XMS_ITS | Encounter Summary ---
Author Organization [employer] Address [address] [place] [address] Care Team Providers Care Board Attendant Name Role Phone Victorina De La Torre MD Primary Care Provide r Reason for Referral * Consultation (Routine) - Authorized Specialty Diagnoses / Procedures Referred By Contac t Referred To Contact Midwifery Diagnoses Metrorrhagia Victorina De La Torre MD [address] [place] [address] Phone: tel: fax: Paula Singleton CNM [address] [place] [address] Phone: tel: fax: Referral ID Status Reason Start Date Expiration Date Visits Requested Visits Authorized [id number] Authorized Consult and Treat 12/11/2024 12/11/2025 1 1 Encounter Details Date Type Department Care Team (Late st Contact Info) Description 12/11/2024 Orders Only [facility] [address] [place] [address] [phone] Victorina De La Torre MD [address] [place], [place] [phone] Metrorrhagia (Primary Dx) Social History Tobacco Use Types [...] Description 12/26/2024 8:00 AM EDT Office Visit [facility] [address] [place] [address] Scheduled Referrals Name Type Priority Associated Diagnoses Order Schedule Referral to Gynecology (Paula) Outpatient Referral Routine Metrorrhagia Expected: 12/11/2024 (Approximate), Expires: 12/11/2025 documented as of this encounter Visit Diagnoses Diagnosis Metrorrhagia- Primary documented in this encounter Additional Health Concerns Assessment Noted Time PHQ-9 Depression Total Score: 0 09/21/19 9:11 AM EDT documented as of this encounter Care Teams Board Attendant Relationship Specialty Start Date End Date Victorina De La Torre MD [address] [place] [address] PCP - General Internal Medicine 09/20/24 documented as of this encounter
--- OUTSIDE RECORDS SUMMARY | 2024-12-13 11:50 | XMS_ITS | Encounter Summary ---
Author Organization [employer] Address [address] [place] [address] Care Team Providers Care Maintenance Pipefitter Name Role Phone Victorina De La Torre MD Primary Care Provide r Reason for Visit * Reason Onset Date Comments Lab Orders 12/10/2024 Encounter Details Date Type Department Care Team ([facility] st Contact Info) Description 12/10/2024 Telephone [facility] [address] [place], [place] [phone] Natalia Cat, ARIADNE [address] [place] [address] Lab Orders Social History Tobacco Use Types Packs/Day Years [...] AM EDT documented as of this encounter Miscellaneous Notes * Telephone Encounter - Natalia Cat RN - 12/10/2024 3:19 PM EDT Pt.'s reporting immigration process is requiring RPR with reflex lab testing, not yet ordered.Advised request would be sent to provider for order and they will see on Mychart for when order is placed. Thanks! documented in this encounter Plan of Treatment Upcoming Encounters Date Type Department Care Team (Late st Contact Info) Description 12/26/2024 8:00 AM EDT Office Visit [facility] [address] [place] [address] documented as of this encounter Visit Diagnoses Not on filedocumented in this encounter Additional Health Concerns Assessment Noted Time PHQ-9 Depression Total Score: 0 09/21/19 9:11 AM EDT documented as of this encounter Care Teams Maintenance Pipefitter Relationship Specialty Start Date End Date Victorina De La Torre MD [address] [place] [address] PCP - General Internal Medicine 09/20/24 documented as of this encounter
--- OUTSIDE RECORDS SUMMARY | 2024-12-13 11:50 | XMS_ITS | Clinical Summary ---
Author Organization [employer] Address [address] [place] [address] Care Team Providers Care Certified Substance Abuse Counselor Name Role Phone Victorina De La Torre [...] heavy periods I will refer her to INTERIOR DESIGN TEACHER Assessment & Plan (09/20/2024 12:23 PM EDT): Will continue to monitor for now Tuberculosis screening 09/20/2024 Assessment & Plan (09/20/2024 12:24 PM EDT): Patient reports tuberculosis test done previously was positive, but she was never treated I will repeat T spot, if positive I will refer patient to tuberculosis clinic Encounters Date Type Department Care Team Description 12/13/2024 9:30 AM EDT Clinical Support [address] [address] Megan Tidwell RN Encounter for immunization 12/13/2024 Travel 12/11/2024 Orders Only [address] [address] Victorina De La Torre MD Metrorrhagia (Primary Dx) 12/10/[address] [address] Natalia Cat, instructional design technologist Orders 12/04/2024 Orders Only [address] [address] Victorina De La Torre MD Screening examination for STI (Primary Dx) 11/30/2024 Results Follow-Up [address] [address] Victorina De La Torre MD C-reactive Protein, Sed Rate by Modified Westergren, Ferritin, Iron And Total Iron Binding Capacity 11/29/[address] [address] Victorina De La Torre MD Insurance 11/29/2024 Orders Only [address] [address] Victorina De La Torre MD 11/27/2024 10:45 AM EDT Telemedicine [address] [address] Victorina De La Torre MD Polyarthralgia; Chronic nonintractable headache, unspecified headache type; Anemia, unspecified type; Chronic migraine with aura without status migrainosus, not intractable; Metrorrhagia 11/27/2024 Travel 11/21/2024 Orders Only [address] [address] Victorina De La Torre MD Dyslipidemia (Primary Dx) 11/21/[address] [address] Victorina De La Torre MD Lab Orders 11/20/2024 Telephone [facility] [address] [address] Hector Edwards MD 11/16/2024 9:40 AM EDT Office Visit [facility] [address] [address] Hector Edwards MD Chronic nonintractable headache, unspecified headache type (Primary Dx); Suprapubic pain 11/16/2024 Travel 10/23/2024 6:00 PM EDT Office Visit [facility] [address] [place] [phone] Donovan Dumont MD Chronic nonintractable headache, unspecified headache type (Primary Dx) 10/23/2024 Travel 10/23/[address] [address] Victorina De La Torre MD Nurse Triage 09/26/2024 Results Follow-Up [address] [address] Victorina De La Torre MD XR Chest 2 Views 09/24/2024 Orders Only [address] [address] Victorina De La Torre MD Positive TB test (Primary Dx) 09/24/2024 Results Follow-Up [address] [address] Victorina De La Torre MD CBC auto differential, Comprehensive Metabolic Panel, Hemoglobin A1c, Additional followed-up results: 6 09/24/2024 Telephone [facility] [address] [place] [address] Victorina De La Torre MD 09/20/2024 9:30 AM EDT Office Visit [address] [address] Victorina De La Torre MD Chronic nonintractable headache, unspecified headache type (Primary Dx); Constipation, unspecified constipation type; Anxiety; Cervicalgia; Metrorrhagia; Tuberculosis screening 09/20/2024 Travel 09/19/[address] [address] Victorina De La Torre MD Chart Prep 09/13/2024 Patient Outreach [facility] [address] [place] [address] Victorina De La Torre MD Pre-visit Planning ([facility] unable to reach [facility] ) from Last 3 Months Immunizations Immunization Administration Dates Next Due Influenza, seasonal, injectable, preservative fr ee 12/13/2024 Social History Tobacco Use Types Packs/Day Years [...] 8:00 AM EDT Office Visit [facility] [address] [place] [address] Health Maintenance Due Date Last Done Comments Family Planning (PISQ) 1998 HPV Vaccines (1 - 3-dose series) 1998 DTaP/Tdap/Td Vaccines (1 - Tdap) 2002 Hepatitis B Vaccines (1 of 3 - 19+ 3-dose series) 2002 Pap Smear 2004 Cervical Cancer Screening 2013 HPV/Cotest 2013 Mammogram 2023 COVID-19 Vaccine ( - 2023-2 5 season) 2024 Alcohol/Substance Use Screening 09/20/2025 09/20/2024 Depression Screening 09/20/2025 09/20/2024, 09/20/2024 SDOH Screening 09/20/2025 09/20/2024 Tobacco Screening 11/16/2025 11/16/2024 Disability Screening 11/27/2025 11/27/2024 Zoster Vaccines (1 of 2) 2033 RSV Patients and Patients Aged 60 years or older (1 - 1-dose 75+ series) 2058 HIV Screening Completed 09/20/2024 Hepatitis C Screening Completed 09/20/2024 Influenza Vaccine Completed 12/13/2024 HIB Vaccines Aged Out No longer eligi [...] Procedure Name Priority Date/Time Associated Diagnosis Comments VITAMIN B12 Routine 11/29/2024 9:13 AM EDT IRON AND TOTAL IRON BINDING CAPACITY Routine 11/29/2024 9:13 AM EDT Anemia, unspecified type FERRITIN Routine 11/29/2024 9:13 AM EDT Anemia, unspecified type ROBERTO SCREEN, IFA, W/REFL TITER AND PATTERN Routine 11/29/2024 9:13 AM EDT Polyarthralgia SED RATE BY MODIFIED WESTERGREN Routine 11/29/2024 9:13 AM EDT Polyarthralgia CYCLIC CITRULLINATED PEPTIDE (CCP) AB (IGG) Routine 11/29/2024 9:13 AM EDT Polyarthralgia C-REACTIVE PROTEIN Routine 11/29/2024 9: 13 AM EDT Polyarthralgia CREATINE KINASE, TOTAL Routine 11/21/2024 12:34 PM [...] type from Last 3 Months Results * Cyclic Citrullinated Peptide (CCP) Antibody (IgG) (11/29/2024 9:13 AM EDT) Cyclic Citrullinated Peptide <16 UNITS [facility] Comment:Reference RangeNegat todd: <20Weak Positive: 20-39Moderate Positive: 40-59Strong Positive: >59THIS TEST WAS PERFORMED AT:[employer] [address] [phone] URENA MD Blood Venous blood specimen / Unknown 11/29/2024 9:13 AM EDT 11/29/2024 11:41 AM EDT us Victorina Medina MD LAB BLOOD ORDERABLES Final Result Performing Organization Address [facility] Co de Phone Number [facility] [address] [place] [phone] * (ABNORMAL) Iron And Total Iron Binding Capacity (11/29/2024 9:13 AM EDT) Pathologist [facility] Iron 28(L) 30 - 160 mcg/dL [facility] Total Iron Binding Capacity 348 228 - 428 mcg/dL [facility] Percent Iron Saturation 8(L) 15 - 50 % [facility] Unsaturated Iron Binding 320 ug/dL [facility] Blood Venous blood specimen / Unknown 11/29/2024 9:13 AM EDT 11/29/2024 11:41 AM EDT us Victorina Medina MD LAB BLOOD ORDERABLES Final Result Performing Organization Address [facility]/ZIP Co de Phone Number [facility] [address] [place] [phone] * (ABNORMAL) Sed Rate by Nanci Palomo (11/29/2024 9:13 AM EDT) Pathologist [facility] Erythrocyte Sedimentation Rate 36(H) 0 - 20 MM/HR [facility] Comment:Patients with polycy themia and many hemoglobin abnormalitiesmay have depressed sed rates whereas patients with anemiamay have elevated sed rates. Blood Venous blood specimen / Unknown 11/29/2024 9:13 AM EDT 11/29/2024 11:35 AM EDT Victorina Medina MD LAB BLOOD ORDERABLES Final Result Performing Organization Address [facility] Co de Phone Number [facility] [address] [place] [phone] * C-reactive Protein (11/29/2024 9:13 AM EDT) C Reactive Protein 0.36 < or = 0.50 mg/dL [facility] Blood Venous blood specimen / Unknown 11/29/2024 9:13 AM EDT 11/29/2024 11:41 AM EDT Victorina Medina MD LAB BLOOD ORDERABLES Final Result Performing Organization Address [facility] Co de Phone Number [facility] [address] [place] [phone] * (ABNORMAL) ROBERTO Screen,IFA, with Reflex to Titer and Pattern (11/29/2024 9:13 AM EDT) Anti Nuclear Antibody Screen POSITIV E(A) NEGATIVE [facility] Comment:ROBERTO IFA is a first l ine screen for detecting thepresence of up to approximately 150 autoantibodies invarious autoimmune diseases. A positive ROBERTO IFA resultis suggestive of autoimmune disease and reflexes totiter and pattern. Further laboratory testing may beconsidered if clinically indicated.For additional information, please refer tohttp://education.shopkick/faq/PIE868(This link is being provided for informational/educational purposes only.) ROBERTO Titer 1:80(A) titer [facility] Comment:A low level ROBERTO tite r may be present in pre-clinicalautoimmune diseases and normal individuals. Reference Range <1:40 Negative 1:40-1:80 Low Antibody Level >1:80 Elevated Antibody Level ROBERTO Pattern Nuclear , Homogen eous(A) [facility] Comment:Homogeneous pattern is associated with systemic lupuserythematosus (SLE), drug-induced lupus and juvenileidiopathic arthritis.AC-1: HomogeneousInternational Consensus on ROBERTO Patterns(https://doi.org/10.1515/krdz-8794-8552) ROBERTO TITER 2 (REF LAB) 1:40(A) titer [facility] Comment:A low level ROBERTO tite r may be present in pre-clinicalautoimmune diseases and normal individuals. Reference Range <1:40 Negative 1:40-1:80 Low Antibody Level >1:80 Elevated Antibody Level ROBERTO Pattern 2 Nuclear , Speckle d(A) [facility] Comment:Speckled pattern is associated with mixed connectivetissue disease (MCTD), systemic lupus erythematosus(SLE), Sjogren's syndrome, dermatomyositis, andsystemic sclerosis/polymyositis overlap.AC-2,4,5,29: SpeckledInternational Consensus on ROBERTO Patterns(https://doi.org/10.1515/upnj-2270-0714)THIS TEST WAS PERFORMED AT:[employer] [place] [phone] URENA MD ROBERTO TITER 3 TNP [facility] ROBERTO PATTERN 3 [facility] Blood Venous blood specimen / Unknown 11/29/2024 9:13 AM EDT 11/29/2024 11:41 AM EDT us Victorina Medina MD LAB BLOOD ORDERABLES Final Result [facility] [address] [place], [place] [phone] * (ABNORMAL) Ferritin (11/29/2024 9:13 AM EDT) Ferritin 8(L) 10 - 250 ng/mL [facility] Blood Venous blood specimen / Unknown 11/29/2024 9:13 AM EDT 11/29/2024 11:41 AM EDT Victorina Medina MD LAB BLOOD ORDERABLES Final Result Performing Organization Address City/[facility]/ZIP Co de Phone Number [facility] [address] [place] [phone] * Vitamin B12 (11/29/2024 9:13 AM EDT) Pathologist [facility] Vitamin B12 787 200 - 900 pg/mL [facility] Comment:NORMAL 200-900 PG/ML INDETERMINATE 160-199 PG/ML DEFICIENT < 160 PG/ML 11/29/2024 9:13 AM EDT 11/29/2024 11:41 AM EDT Victorina Medina MD LAB BLOOD ORDERABLES Final Result Performing Organization Address [facility]/ZIP Co de Phone Number [facility] [address] [place] [phone] * (ABNORMAL) CBC auto differential (11/21/2024 12:34 PM EDT) Only the most recent of2 resultswithin the time period is included. [facility] White Blood Count 5.3 4.8 - 10.8 X10*3/uL [facility] Red Blood Count 3.99(L) 4.20 - 5.50 X10*6/uL [facility] Hemoglobin 10.6(L) 12.0 - 16.0 g/dl [facility] Hematocrit 32.9(L) 37.0 - 47.0 % [facility] Mean Corpuscular Volume 82.5 80.0 - 98.0 fL [facility] Mean Corpuscular Hemoglobin 26.6(L) 27.0 - 33.0 pg [facility] Mean Corpuscular HGB Conc 32.2 31.0 - 35.0 g/dl [facility] Red Cell Distribution Width 13.9 11.0 - 16.0 % [facility] Platelet Count 331 160 - 400 X10*3/uL [facility] Mean Platelet Volume 11.0 9.4 - 12.3 fL [facility] Neutrophils Percent Auto 35.0(L) 45 - 73 % [facility] Imm Gran Pct Auto 0.2 0.0 - 0.4 % [facility] Lymphocytes Percent Auto 52.5(H) 20 - 40 % [facility] Monocytes Percent Auto 7.3 2 - 11 % [facility] Eosinophils Percent Auto 4.1(H) 0 - 4 % [facility] Basophils Percent Auto 0.9 0 - 2 % [facility] NRBC Pct Auto 0.0 0.0 - 0.2 /100WBC [facility] Neutrophils Absolute Auto 1.9(L) 2.0 - 8.3 x10*3/uL [facility] Imm Gran Abs Auto 0.01 0.00 - 0.03 X10*3/uL [facility] Lymphocytes Absolute Auto 2.8 1.2 - 4.9 X10*3/uL [facility] Monocytes Absolute Auto 0.4 0.1 - 1.2 X10*3/uL [facility] Eosinophils Absolute Auto 0.2 0.0 - 0.4 X10*3/uL [facility] Basophils Absolute Auto 0.1 0.0 - 0.2 X10*3/uL [facility] NRBC Abs Auto 0.000 0.0 - 0.012 X10*3/uL [facility] 11/21/2024 12:3 4 PM EDT 11/21/2024 1:21 PM EDT us Victorina Medina MD LAB BLOOD ORDERABLES Final Result [facility] [address] [place] [phone] * Creatine Kinase, Total (11/21/2024 12:34 PM EDT) Creatine Kinase Total 58 26 - 140 U/L [facility] 11/21/2024 12:3 4 PM EDT 11/21/2024 1:21 PM EDT Victorina Medina MD LAB BLOOD ORDERABLES Final Result Performing Organization Address [facility] Phone Number [facility] [address] [place] [phone] * Hepatic Function Panel (11/21/2024 12:34 PM EDT) Bilirubin, Total 0.3 0.0 - 1.0 mg/dL [facility] Bilirubin, Direct 0.1 0.0 - 0.5 mg/dL [facility] Aspartate Amino Transferase 21 5 - 31 U/L [facility] Alanine Aminotransferase 16 0 - 31 U/L [facility] Total Protein 7.4 6.5 - 8.0 g/dL [facility] Albumin Level 4.6 3.5 - 5.0 g/dL [facility] Alkaline Phosphatase 57 39 - 117 U/L [facility] 11/21/2024 12:3 4 PM EDT 11/21/2024 1:21 PM EDT us Victorina Medina MD LAB BLOOD ORDERABLES Final Result Performing Organization Address [facility] Phone Number [facility] [address] [place] [phone] * (ABNORMAL) Lipid Panel, Standard (11/21/2024 12:34 PM EDT) Only the most recent of2 resultswithin the time period is included. Triglycerides 110 <150 mg/dL [facility] Comment:Desirable Triglyceri de: less than 150 mg/dLBorderline High Triglyceride 150-199 mg/dLHigh Triglyceride: 200-499 mg/dLVery High Triglyceride: greater than or equal to 5OO mg/dL Cholesterol 265(H) <200 mg/dL [facility] Comment:Desirable Cholestero l: less than 200 mg/dLBorderline High Cholesterol: 200-239 mg/dLHigh Cholesterol: greater than 239 mg/dL LDL Cholesterol Calculated 184(H) <100 mg/dL [facility] Comment:Desirable LDL: less than 100 mg/dLNear Optimal/Above Optimal LDL: 110- 129 mg/dLBorderline High LDL: 130-159 mg/dLHigh LDL: 160-189 mg/dLVery High LDL: greater than or equal to 190 mg/dL HDL Cholesterol 59 >40 mg/dL [facility] Comment:Desirable HDL: great er than 40 mg/dL Note: This HDL assay may give artificially low results in patients with liver disease. Blood Venous blood specimen / Unknown 11/21/2024 12:34 PM EDT 11/21/2024 1:21 PM EDT us Victorina Medina MD LAB BLOOD ORDERABLES Final Result [facility] [address] [place] [phone] * (ABNORMAL) Basic Metabolic Panel (11/21/2024 12:34 PM EDT) Sodium 138 135 - 145 mmol/L [facility] Potassium 5.1 3.3 - 5.1 mmol/L [facility] Chloride 108 96 - 108 mmol/L [facility] Carbon Dioxide 24 22 - 29 mmol/L [facility] Anion Gap 11(L) 12 - 20 [facility] Urea Nitrogen (BUN) 11 9 - 16 mg/dL [facility] Creatinine, Serum 0.64 0.5 - 1.4 mg/dL [facility] Estimated Glomerular Filt Rate >60 [facility] Comment:Chronic Kidney Disea se: Estimated GFR < 60 mL/min/1.64h4Islfni Kidney Disease: Estimated GFR < 15 mL/min/1.73m2 Glucose 83 60 - 115 mg/dL [facility] Calcium 9.3 8.4 - 10.2 mg/dL [facility] 11/21/2024 12:3 4 PM EDT 11/21/2024 1:21 PM EDT us Victorina Medina MD LAB BLOOD ORDERABLES Final Result Performing Organization Address [facility] Co de Phone Number [facility] [address] [place] [phone] * POCT urinalysis dipstick manually resulted [...] UA OK Urine 11/16/2024 9:36 AM EDT us Hector Edwards MD POINT OF CARE TEST ENTER/EDIT OR DERABLES Final Result * Culture, Urine, Routine (11/16/2024 12:00 AM EDT) Urine Urine specimen obtained by clean catch procedure / Unknown 11/16/2024 11/16/2024 Comment:UACC Narrative [facility] - 11/18/2024 9:49 AM EDT Urine Culture No growth. Specimen Source: Urine clean catch us Hector Edwards MD LAB MICROBIOLOGY - GENERAL ORDER LORA Final Result Performing Organization Address City/[facility] Co de Phone Number [facility] [address] [place] [phone] * XR Chest 2 Views (09/26/2024 8:50 AM EDT) Anatomical Region Laterality Modality Chest Radiographic [place] ging 09/26/2024 8:50 AM EDT Narrative 09/26/2024 9:20 AM EDT [address] [address] XRay Report Signed Patient: Ayleen Kapadia R#: [id number] : 1985 Acct:[id number] Age/Sex: 39 / F ADM Date: 09/26/24 Loc: CX Attending Dr: Victorina Medina MD Ordering Physician: Victorina De La Torre MD Date of Service: 09/26/24 Procedure(s): XR chest 2V Accession Number(s): [id number] cc: Victorina De La Torre MD EXAMINATION: [...] signed by Adiel Sotelo MD in OV> 09/26/24 0917 DD/ 0850 TD/TT: 09/26/24 0900 Tape Edge Machine Operator: Procedure Note Donotuseinterpreter, Image - 09/26/[address] [address] XRay Report Signed Patient: Ayleen Kapadia R#: [id number] : 1985Acct:[id number] Age/Sex: 39 / FADM Date: 09/26/24 [facility]: Victorina Medina MD Ordering Physician: Victorina De La Torre MD Date of Service: 09/26/24 Procedure(s): XR chest 2V Accession Number(s): [id number] cc: Victorina De La Torre MD EXAMINATION: [...] OV> 09/26/[address] DD/ 0850 TD/TT: 09/26/24 09 Tape Edge Machine Operator: Victorina Medina MD IMG XR PROCEDURES Fin al Result * Vitamin D, 25-Hydroxy, Total, Immunoassay (09/20/2024 10:33 AM EDT) [facility] Vitamin D 25-OH Total 31.1 >30 ng/mL [facility] Comment: Health Based Reference Values*< 20 ng/mL Vxorktbss19-52 ng/mL Insufficient> 30 ng/mL Sufficient*Ashely MERRITT. N [...] Medina MD LAB BLOOD ORDERABLES Final Result [facility] [address] [place] [phone] * (ABNORMAL) T-SPOT??.TB (09/20/2024 10:33 AM EDT) T Spot TB Positive( A) Negative [facility] Comment: Diagnosing or excluding tuberculosis [...] as aquantitative test. TS PANEL A 38 [facility] TS PANEL B 38 [facility] Negative Control Passed [facility] Positive Control Passed [facility] Comment:For additional infor brian, please refer tohttp://education.Sagence/faq/XQS980(This link is being provided for informational/educational purposes only.)REPORT COMMENT:REC'D AT [facility] TEST WAS PERFORMED AT:[id number] [place] [phone] W. MASON,MD,PHD 09/20/2024 10:3 3 AM EDT 09/20/2024 11:05 AM EDT Narrative [facility] - 09/24/2024 1:28 AM EDT RESULTS, AND CALLED [facility] AT [phone]. us Victorina Medina MD LAB BLOOD ORDERABLES Final Result Performing Organization Address City/[facility]/ZIP Co de Phone Number [facility] [address] [place] [phone] * TSH with Reflex to Free T4 (09/20/2024 10:33 AM EDT) TSH reflex Free T4 0.54 0.32 - 4.0 uIU/mL [facility] Blood Venous blood specimen / Unknown 09/20/2024 10:33 AM EDT 09/20/2024 11:05 AM EDT us Victorina Medina MD LAB BLOOD ORDERABLES Final Result Performing Organization Address [facility] Co de Phone Number [facility] [address] [place] [phone] * Hepatitis C Antibody with Reflex to HCV, RNA, Quantitative, Real-Time PCR (09/20/2024 10:33 AM EDT) Hepatitis C Antibody Nonreactive Nonreactive [facility] Comment:Antibodies to HCV no t detected; does not exclude early acuteHCV infection. Blood Venous blood specimen / Unknown 09/20/2024 10:33 AM EDT 09/20/2024 11:05 AM EDT us Victorina Medina MD LAB BLOOD ORDERABLES Final Result Performing Organization Address [facility] Co de Phone Number [facility] [address] [place] [phone] * HIV-1/2 Antigen and Antibodies, Fourth Generation, with Reflexes (09/20/2024 10:33 AM EDT) HIV AB/AG Nonreactive Nonreactive [facility] Comment:HIV-1 p24 Ag and/or HIV-1/HIV-2 Ab not detected.A test result that is nonreactive does not exclude thepossibility of exposure to or infection with HIV-1 and/orHIV-2. Nonreactive results in this assay for individualswith prior exposure to HIV-1 and/or HIV-2 may be due toantigen and antibody levels that are below the limit ofdetection of this assay.The TheracosniHyginex HIV Ag/Ab Combo assay result andsupplemental assay results should be interpreted inconjunction with the patient's clinical presentation,history and other laboratory results. If the results areinconsistent with clinical evidence, additional testing issuggested to confirm the result. Blood Venous blood specimen / Unknown 09/20/2024 10:33 AM EDT 09/20/2024 11:05 AM EDT us Victorina Medina MD LAB BLOOD ORDERABLES Final Result [facility] [address] [place] [phone] * Hemoglobin A1c (09/20/2024 10:33 AM EDT) Hemoglobin A1c 5.3 <6.0 % [facility] Comment:Hemoglobin A1C Refer ence Range Adults: 4.8 - 6.0 % Non diabetic: < 6.0 % Goal: < 7.0 %Additional Action Suggested: > 8.0 %Note: Hemoglobin A1c results are invalid for patients with abnormal amounts of HbF. Blood transfusions may impact the HbA1c concentration in the patient sample. Estimated Average Glucose 105 mg/dL [facility] Comment:eAG = Estimated ave rage glucose which is %A1C expressed asaverage glucose, using the formula of the A3T-OocjwosCmdblcx Glucose study (ADAG), Diabetes Care, Vol.31,#8,Oct. 2007 Blood Venous blood specimen / Unknown 09/20/2024 10:33 AM EDT 09/20/2024 11:05 AM EDT Victorina Medina MD LAB BLOOD ORDERABLES Final Result [facility] [address] [place] [phone] * (ABNORMAL) Comprehensive Metabolic Panel (09/20/2024 10:33 AM EDT) Sodium 139 135 - 145 mmol/L [facility] Potassium 3.7 3.3 - 5.1 mmol/L [facility] Chloride 104 96 - 108 mmol/L [facility] Carbon Dioxide 28 22 - 29 mmol/L [facility] Anion Gap 11(L) 12 - 20 [facility] Urea Nitrogen (BUN) 15 9 - 16 mg/dL [facility] Creatinine, Serum 0.62 0.5 - 1.4 mg/dL [facility] Estimated Glomerular Filt Rate >60 [facility] Comment:Chronic Kidney Disea se: Estimated GFR < 60 mL/min/1.57b4Xnvsgq Kidney Disease: Estimated GFR < 15 mL/min/1.73m2 Glucose 85 60 - 115 mg/dL [facility] Calcium 9.3 8.4 - 10.2 mg/dL [facility] Bilirubin, Total 0.5 0.0 - 1.0 mg/dL [facility] Aspartate Amino Transferase 24 5 - 31 U/L [facility] Alanine Aminotransferase 22 0 - 31 U/L [facility] Total Protein 7.4 6.5 - 8.0 g/dL [facility] Albumin Level 4.8 3.5 - 5.0 g/dL [facility] Alkaline Phosphatase 60 39 - 117 U/L [facility] Blood Venous blood specimen / Unknown 09/20/2024 10:33 AM EDT 09/20/2024 11:05 AM EDT Victorina Medina MD LAB BLOOD ORDERABLES Final Result [facility] [address] [place] [address] [phone] from Last 3 Months Insurance HSN PARTIAL Care Teams Certified Substance Abuse Counselor Relationship Specialty Start Date End Date Victorina De La Torre MD [address] [place] [phone] PCP - General Internal Medicine 09/20/24
== END 2024-12-13 09:54 | disposition home or self-care (01) ==
LOC: HO.HHCL 09:53
PROVIDERS: PCP Internal Medicine; Visit Provider Internal Medicine
DX: Z11.3 Encounter for screening for infections with a predominantly sexual mode of transmission (principal)
CPT/HCPCS: 36415; 86592

== ENCOUNTER 2025-01-15 13:04 | Outpatient (REF) | payer SELFPAY ==
--- OUTSIDE RECORDS SUMMARY | 2025-01-15 09:40 | XMS_ITS | Encounter Summary ---
Author Organization [employer] Address [address] [facility] [place] [address] Care Team Providers Care Trouble Clerk Name Role Phone Victorina De La Torre MD Primary Care Provide r Reason for Visit * Reason Comments Vaginal Itching Encounter Details Date Type Department Care Team ([facility] Contact Info) Description 01/15/2025 9:40 AM EDT Office Visit [facility] W[facility] [place] [address] [place] [address] Chelo Taylor MD [address] [place] [address] Vaginal itching Social History Tobacco Use Types Packs/Day Years Used Date Smoking Tobacco: Never Passive Smoke Exposure: Never Smokeless Tobacco: Never Alcohol Use Standard Drinks/Week Comments Never 0 (1 standard drink = 0.6 oz [...] Sign Reading Time Taken Comments Blood Pressure 117/81 01/15/2025 9:23 AM EDT Pulse 98 01/15/2025 9:23 AM EDT Temperature 36.7 C (98 F) 01/15/2025 9:23 AM EDT Respiratory Rate 20 01/15/2025 9:23 AM EDT Oxygen Saturation 98% 01/15/2025 9:23 AM EDT Inhaled Oxygen Concentration - - Weight 57.8 kg (127 lb 6.4 oz) 01/15/2025 9:23 A M EDT Height - - Body Mass Index 23.3 10/23/2024 6:07 PM EDT documented in this encounter Progress Notes * Chelo Taylor MD - 01/15/2025 9:40 AM EDT Subjective Patient ID: Ayleen Beth is a 39 y.o. female who presents for Vaginal Itching. Vaginal Itching The patient's primary symptoms include genital itching. The current episode started in the past 7 days. The problem occurs constantly. The problem has been gradually worsening. The pain is moderate. The problem affects both sides. Pertinent negatives include no abdominal pain, anorexia, back pain, chills, constipation, diarrhea, discolored urine, dysuria, fever, flank pain, frequency, headaches, hematuria, joint pain, joint swelling, nausea, painful intercourse, rash, sore throat, urgency or vomiting. She is sexually active. Her menstrual history has been regular. Review of Systems Constitutional: Negative for chills and fever. HENT: Negative for sore throat. Gastrointestinal: Negative for abdominal pain, anorexia, constipation, diarrhea, nausea and vomiting. Genitourinary: Negative for dysuria, flank pain, frequency, hematuria and urgency. Musculoskeletal: Negative for back pain and joint pain. Skin: Negative for rash. Neurological: Negative for headaches. Objective Physical Exam Constitutional: Appearance: Normal appearance. Cardiovascular: Rate and Rhythm: Normal rate and regular rhythm. Genitourinary: Labia: Right: No rash, tenderness or lesion. Left: No rash, tenderness or lesion. Vagina: No vaginal discharge, erythema, tenderness or bleeding. Neurological: Mental Status: She is alert. Assessment/Plan Diagnoses and all orders for this visit: Vaginal itching Comments: Mostly BV Swab sent out Started on Flagyl BID for 5 days Educated about hygiene Orders: - POCT urinalysis dipstick manually resulted (CPT 08589) Other orders - metroNIDAZOLE (Flagyl) 500 MG tablet; Take 1 tablet (500 mg) by mouth 2 times daily for 5 days. documented in this encounter Plan of Treatment Upcoming Encounters Date Type Department Care Team (Late st Contact Info) Description 01/24/2025 10:30 AM EST Office Visit [facility] ADULT DENTAL [address] [place] [address] 02/28/2025 9:15 AM EST Office Visit [facility] MEDICINE [address] [place] [address] Victorina De La Torre MD [address] [place] [address] Scheduled Orders Name Type Priority Associated Diagnoses Orde r Schedule Bacterial Vaginosis Panel Microbiology Routine Vaginal itching Ordered: 01/15/2025 documented as of this encounter Procedures Procedure Name Priority Date/Time Associated Diagnosis Comments POCT URINALYSIS DIPSTICK Routine 01/15/2025 9:43 AM EDT Vaginal itching documented in this encounter Results * POCT urinalysis dipstick manually resulted (CPT 14196) (01/15/2025 9:43 AM EDT) Color, UA Yellow Clarity, UA Clear Glucose, UA Negative Bilirubin, UA Negative Ketones, UA Negative Spec Grav, UA 1.005 Blood, UA Negative Negative, None Detected pH, UA 6.0 Protein, UA Negative Urobilinogen, UA 0.2 Leukocytes, UA Trace Negative, Rare, Trace Nitrite, UA Negative Negative, None Detected Appearance, UA clear QC Media Lot # [id number] Lot# Expiration Date [id number] Urine (Urine, Random) 01/15/2025 9:43 AM EDT Chelo Taylor MD POINT OF CARE TEST ENTER/EDIT OR DERABLES Final Result documented in this encounter Visit Diagnoses Diagnosis Vaginal itching Pruritus of genital organs documented in this encounter Additional Health Concerns Assessment Noted Time PHQ-9 Depression Total Score: 0 09/21/19 9:11 AM EDT documented as of this encounter Care Teams Trouble Clerk Relationship Specialty Start Date End Date Victorina De La Torre MD [address] [place] [id number] PCP - General Internal Medicine 09/20/24 documented as of this encounter
--- OUTSIDE RECORDS SUMMARY | 2025-01-15 16:38 | XMS_ITS | Encounter Summary ---
Author Organization [employer] Address [address] [address] [place] [address] Care Team Providers Care Tube Laser Operator Name Role Phone Victorina De La Torre MD Primary Care Provide r Encounter Details Date Type Department Care Team (Latest Contact Info) Description 01/15/2025 Travel Social History Tobacco Use Types Packs/Day [...] Description 01/24/2025 10:30 AM EST Office Visit [facility] ADULT DENTAL [address] [place] [id number] 02/28/2025 9:15 AM EST Office Visit [facility] MEDICINE [address] [place] [address] Victorina De La Torre MD [address] [place] [address] documented as of this encounter Visit Diagnoses Not on filedocumented in this encounter Additional Health Concerns Assessment Noted Time PHQ-9 Depression Total Score: 0 09/21/19 9:11 AM EDT documented as of this encounter Care Teams Tube Laser Operator Relationship Specialty Start Date End Date Victorina De La Torre MD [address] [place] [id number] PCP - General Internal Medicine 09/20/24 documented as of this encounter
--- OUTSIDE RECORDS SUMMARY | 2025-01-15 16:38 | XMS_ITS | Encounter Summary ---
Author Organization [employer] Address [address] [facility] [address] [place] [address] Care Team Providers Care Clay Artist Name Role Phone Victorina De La Torre MD Primary Care Provide r Reason for Visit * Reason Onset Date Comments [facility] CALL 01/15/2025 Rece Encounter Details Date Type Department Care Team ([facility] Contact Info) Description 01/15/2025 Telephone [facility] [address] [place] [address] Chelo Taylor MD [address] [place] [address] [facility] CALL (Rece) Social History Tobacco Use Types Packs/Day Years [...] encounter Miscellaneous Notes * Telephone Encounter - Britta Haines [place] - 01/15/2025 1:33 PM EDT Received call from [facility] stating that BV panel cannot be tested and need to be repeated because the park that you break off from the swab was in the container. Specimen will need to be recollected message sent to provider and JAYESH that worked with provider. documented in this encounter Plan of Treatment Upcoming Encounters Date Type Department Care Team (Late st Contact Info) Description 01/24/2025 10:30 AM EST Office Visit [facility] ADULT DENTAL [address] [place] [address] 02/28/2025 9:15 AM EST Office Visit [facility] MED[facility] [address] [place] [address] Victorina De La Torre MD [address] [place] [address] documented as of this encounter Visit Diagnoses Not on filedocumented in this encounter Additional Health Concerns Assessment Noted Time PHQ-9 Depression Total Score: 0 09/21/19 25 9:11 AM EDT documented as of this encounter Care Teams Clay Artist Relationship Specialty Start Date End Date Victorina De La Torre MD [address] [place] [address] PCP - General Internal Medicine 09/20/24 documented as of this encounter
--- OUTSIDE RECORDS SUMMARY | 2025-01-15 16:39 | XMS_ITS | Clinical Summary ---
Author Organization [employer] Address [address] [place] [address] Care Team Providers Care Dye Weigher Name Role Phone Victorina De La Torre MD Primary Care Provide r Allergies No known active allergies Medications amitriptyline (Elavil) 10 MG tabletIndications:C hronic nonintractable headache, unspecified headache type Take 1 tablet (10 mg) by mouth at bedtime. (Discontinue Duloxetine) 30 tablet 2 5 02/15/20 25 Active ascorbic acid (Vitamin C) 500 MG tabletIndications:A nemia, unspecified type Take 1 tablet (500 mg) by mouth Once per day. 30 tablet 11 5 11/28/19 26 Active SUMAtriptan (Imitrex) 25 MG tabletIndications:C hronic migraine with aura without status migrainosus, not intractable Take 1 tablet (25 mg) by mouth 1 (one) time if needed for migraine for up to 1 dose. May repeat dose once in 2 hours if no relief. Do not exceed 2 doses in 24 hours. 9 tablet 5 Active ferrous gluconate (Fergon) 324 (38 Fe) MG tabletIndications:A nemia, unspecified type Take 1 tablet (324 mg) by mouth every other day. 15 tablet 2 5 Active amoxicillin (Amoxil) 500 MG capsule Take 1 capsule (500 mg) by mouth every 8 (eight) hours for 7 days. 21 capsule 5 01/16/20 25 Active acetaminophen (Tylenol) 325 MG tablet Take 2 tablets (650 mg) by mouth every 8 (eight) hours if needed for mild pain. 30 tablet 5 02/08/20 25 Active metroNIDAZOLE (Flagyl) 500 MG tablet Take 1 tablet (500 mg) by mouth 2 times daily for 5 days. 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 Assessment & Plan (09/20/2024 12:23 PM EDT): Will continue to monitor for now Tuberculosis screening 09/20/2024 Assessment & Plan (09/20/2024 12:24 PM EDT): Patient reports tuberculosis test done previously was positive, but she was never treated I will repeat T spot, if positive I will refer patient to tuberculosis clinic Encounters Date Type Department Care Team Description 01/15/2025 9:40 AM EDT Office Visit [facility] [address] [place] [phone] Chelo Taylor MD Vaginal itching 01/15/2025 Telephone [facility] [address] [address] Chelo Taylor MD [facility] (Rece) 01/15/2025 Travel 01/08/2025 8:00 AM EDT Office Visit [facility] [address] [place] [address] AldoaryMonicaub Caries (Primary Dx) 01/07/2025 3:00 PM EDT Office Visit [facility] [address] [place] [address] Jt Galvez DDS Dental caries (Primary Dx) 01/05/2025 Travel 12/26/2024 8:00 AM EDT Office Visit [facility] [address] [place] [address] Saad Umanzor Dental caries (Primary Dx) 12/20/[address] [address] Victorina De La Torre MD Dec recall 12/13/2024 9:30 AM EDT Clinical Support [address] [phone] Megan Tidwell, ARIADNE Encounter for immunization 12/13/2024 Travel 12/11/2024 Orders Only [address] [address] Victorina De La Torre MD Metrorrhagia (Primary Dx) 12/10/[address] [address] Natalia Cat RN Lab Orders 12/04/2024 Orders Only [address] [address] Victorina De La Torre MD Screening examination for STI (Primary Dx) 11/30/2024 Results Follow-Up [address] [address] Victorina De La Torre MD C-reactive Protein, Sed Rate by Modified Westergren, Ferritin, Iron And Total Iron Binding Capacity 11/29/[address] [address] Victorina De La Torre MD Insurance 11/29/2024 Orders Only [address] [address] Victorina De La Torre MD 11/27/2024 10:45 AM EDT Telemedicine [address] [address] Victorina De La Torre MD Polyarthralgia; Chronic nonintractable headache, unspecified headache type; Anemia, unspecified type; Chronic migraine with aura without status migrainosus, not intractable; Metrorrhagia 11/27/2024 Travel 11/21/2024 Orders Only [address] [address] Victorina De La Torre MD Dyslipidemia (Primary Dx) 11/21/[address] [address] Victorina De La Torre MD Lab Orders 11/20/2024 Telephone [facility] [address] [place] [phone] Hector Edwards MD 11/16/2024 9:40 AM EDT Office Visit [facility] [address] [place] [address] Hector Edwards MD Chronic nonintractable headache, unspecified headache type (Primary Dx); Suprapubic pain 11/16/2024 Travel 10/23/2024 6:00 PM EDT Office Visit [facility] [address] [place] [address] Donovan Dumont MD Chronic nonintractable headache, unspecified headache type (Primary Dx) 10/23/2024 Travel 10/23/2024 Telephone [facility] [address] [place] [address] Victorina De La Torre MD Nurse Triage from Last 3 Months Immunizations Immunization Administration Dates Next Due Influenza, seasonal, injectable, preservative fr ee 12/13/2024 Social History Tobacco Use Types Packs/Day Years Used Date Smoking Tobacco: Never Passive Smoke Exposure: Never Smokeless Tobacco: Never Tobacco Cessation:Counseling Given: Not Answered Alcohol Use Standard Drinks/Week Comments Never 0 [...] oz) 01/15/2025 9:23 A M EDT Height 157.5 cm (5' 2 ) 10/23/2024 6:07 PM EDT Body Mass Index 23.3 10/23/2024 6:07 PM EDT Plan of Treatment Upcoming Encounters Date Type Department Care Team (Late st Contact Info) Description 01/24/2025 10:30 AM EST Office Visit [facility] [address] [place] [address] 02/28/2025 9:15 AM EST Office Visit [facility] [address] [place] [address] Victorina De La Torre MD [address] [place] [address] Health Maintenance Due Date Last Done Comments Family Planning (PISQ) 1998 HPV Vaccines (1 - 3-dose series) 1998 DTaP/Tdap/Td Vaccines (1 - Tdap) 2002 Hepatitis B Vaccines (1 of 3 - 19+ 3-dose series) 2002 Pap Smear 2004 Cervical Cancer Screening 2013 HPV/Cotest 2013 Mammogram 2023 COVID-19 Vaccine (1 - 2023-2 5 season) 2024 IPV Vaccines (2 of 3 - Adult catch-up series) 01/07/2025 12/10/2024 Dental Oral Exam 06/27/2025 12/26/2024 Dental Prophylaxis 06/27/2025 12/26/2024 Alcohol/Substance Use Screening 09/20/2025 09/20/2024 Depression Screening 09/20/2025 09/20/2024, 09/20/2024 SDOH Screening 09/20/2025 09/20/2024 Disability Screening 11/27/2025 11/27/2024 Dental X-Ray: Bitewings 12/27/2025 12/26/2024 Tobacco Screening 01/07/2026 01/07/2025 Dental X-Ray: Full Mouth 12/28/2027 12/26/2024 Zoster Vaccines (1 of 2) 2033 RSV [...] Routine 01/15/2025 9:43 AM EDT Vaginal itching 1 EXTRACTION, ERUPTED TOOTH OR EXPOSED ROOT (ELEVATION/FORCEPS REMOVAL) Routine 01/08/2025 8:00 AM EDT 18 LIMITED ORAL EVALUATION - PROBLEM FOCUSED Routine 01/07/2025 3:00 PM EDT PROPHYLAXIS - ADULT Routine 12/26/2024 8 :00 AM EDT COMPREHENSIVE ORAL EVALUATION - NEW OR ESTABLISHED PATIENT Routine 12/26/2024 8:00 AM EDT INTRAORAL - COMPLETE SERIES OF RADIOGRAPHIC IMAGES Routine 12/26/2024 8:00 AM EDT CASE PRESENTATION, DETAILED AND EXTENSIVE TREATMENT PLANNING Routine 12/26/2024 8:00 AM EDT 31 O COMPOSITE FILLING Routine 12/26/2024 12:00 AM EDT 30 O COMPOSITE FILLING Routine 12/26/2024 12:00 AM EDT 29 O COMPOSITE FILLING Routine 12/26/2024 12:00 AM EDT 20 O COMPOSITE FILLING Routine 12/26/2024 12:00 AM EDT 19 O COMPOSITE FILLING Routine 12/26/2024 12:00 AM EDT 18 O COMPOSITE FILLING Routine 12/26/2024 12:00 AM EDT 15 LO COMPOSITE FILLING Routine 12/26/2024 12:00 AM EDT 14 LO COMPOSITE FILLING Routine 12/26/2024 12:00 AM EDT 3 O COMPOSITE FILLING Routine 12/26/2024 12:00 AM EDT 2 O COMPOSITE FILLING Routine 12/26/2024 12:00 AM EDT 1 O COMPOSITE FILLING Routine 12/26/2024 12:00 AM EDT RPR (MONITOR) W/REFL TITER Routine 12/13/2024 10:00 AM EDT Screening examination for STI VITAMIN B12 Routine 11/29/2024 9:13 AM EDT [...] 11/16/2024 12:00 AM EDT Positive TB test HEPATITIS C AB W/REFL TO HCV RNA, QN, PCR Routine 09/20/2024 10:33 AM EDT Chronic nonintractable headache, unspecified headache type HIV 1/2 ANTIGEN/ANTIBODY, FOURTH GENERATION W/RFL Routine 09/20/2024 10:33 AM EDT Chronic nonintractable headache, unspecified headache type from Last 3 Months or Most Recently Relevant to Health Maintenance Results * POCT urinalysis dipstick manually resulted (CPT 28198) (01/15/2025 9:43 AM EDT) Only the most recent of2 resultswithin the time period is included. Color, UA Yellow Clarity, UA Clear Glucose, [...] Urine (Urine, Random) 01/15/2025 9:43 AM EDT us Chelo Taylor MD POINT OF CARE TEST ENTER/EDIT OR DERABLES Final Result * RPR (Monitor) with Reflex to??Titer (12/13/2024 10:00 AM EDT) RPR (Monitor) w/Refl Titer NON-REACTI VE NON-REACT [facility] Comment:THIS TEST WAS PERFOR MED AT:[employer] [address] [phone] URENA MD Rapid Plasma Reagin Ab Titer TNP [facility] Blood Venous blood specimen / Unknown 12/13/2024 10:00 AM EDT 12/13/2024 10:57 AM EDT us Victorina Medina MD LAB BLOOD ORDERABLES Final Result [facility] [address] [place] [phone] * Cyclic Citrullinated Peptide (CCP) Antibody (IgG) (11/29/2024 9:13 AM EDT) Cyclic Citrullinated Peptide <16 UNITS [facility] Comment:Reference RangeNegat mickey: <20Weak Positive: 20-39Moderate Positive: 40-59Strong Positive: >59THIS TEST WAS PERFORMED AT:[employer] [address] [phone] URENA MD Blood Venous blood specimen / Unknown 11/29/2024 9:13 AM EDT 11/29/2024 11:41 AM EDT Victorina Medina MD LAB BLOOD ORDERABLES Final Result Performing Organization Address [facility]/ZIP Co de Phone Number [facility] [address] [place] [address] [phone] * (ABNORMAL) Iron And Total Iron Binding Capacity (11/29/2024 9:13 AM EDT) Iron 28(L) 30 - 160 mcg/dL [facility] Total Iron Binding Capacity 348 228 - 428 mcg/dL [facility] Percent Iron Saturation 8(L) 15 - 50 % [facility] Unsaturated Iron Binding 320 ug/dL [facility] Blood Venous blood specimen / Unknown 11/29/2024 9:13 AM EDT 11/29/2024 11:41 AM EDT us Victorina Medina MD LAB BLOOD ORDERABLES Final Result Performing Organization Address [facility] de Phone Number [facility] [address] [place] [address] [phone] * (ABNORMAL) Sed Rate by Modified Stacia (11/29/2024 9:13 AM EDT) Erythrocyte Sedimentation Rate 36(H) 0 - 20 MM/HR [facility] Comment:Patients with polycy themia and many hemoglobin abnormalitiesmay have depressed sed rates whereas patients with anemiamay have elevated sed rates. Blood Venous blood specimen / Unknown 11/29/2024 9:13 AM EDT 11/29/2024 11:35 AM EDT us Victorina Medina MD LAB BLOOD ORDERABLES Final Result Performing Organization Address [facility] Co de Phone Number [facility] [address] [place] [address] [phone] * C-reactive Protein (11/29/2024 9:13 AM EDT) C Reactive Protein 0.36 < or = 0.50 mg/dL [facility] Blood Venous blood specimen / Unknown 11/29/2024 9:13 AM EDT 11/29/2024 11:41 AM EDT Victorina Medina MD LAB BLOOD ORDERABLES Final Result [facility] [address] [place] [address] [phone] * (ABNORMAL) ROBERTO Screen,IFA, with Reflex to Titer and Pattern (11/29/2024 9:13 AM EDT) Anti Nuclear Antibody Screen POSITIV E(A) NEGATIVE [facility] Comment:ROBERTO IFA is a first l ine screen for detecting thepresence of up to approximately 150 autoantibodies invarious autoimmune diseases. A positive ROBERTO IFA resultis suggestive of autoimmune disease and reflexes totiter and pattern. Further laboratory testing may beconsidered if clinically indicated.For additional information, please refer [email or web address].PickUpPal/faq/[email or web address](This link is being provided for informational/educational purposes only.) ROBERTO Titer 1:80(A) titer [facility] Comment:A low level ROBERTO tite r may be present in pre-clinicalautoimmune diseases and normal individuals. Reference Range <1:40 Negative 1:40-1:80 Low Antibody Level >1:80 Elevated Antibody Level ROBERTO Pattern Nuclear , Homogen eous(A) [facility] Comment:Homogeneous pattern is associated with systemic lupuserythematosus (SLE), drug-induced lupus and juvenileidiopathic arthritis.AC-1: HomogeneousInternational Consensus on ROBERTO Patterns(https://doi.org/10.1515/mvgx-6413-2336) ROBERTO TITER 2 (REF LAB) 1:40(A) titer [facility] Comment:A low level ROBERTO tite r may be present in pre-clinicalautoimmune diseases and normal individuals. Reference Range <1:40 Negative 1:40-1:80 Low Antibody Level >1:80 Elevated Antibody Level ROBERTO Pattern 2 Nuclear , Speckle d(A) [facility] Comment:Speckled pattern is associated with mixed connectivetissue disease (MCTD), systemic lupus erythematosus(SLE), Sjogren's syndrome, dermatomyositis, andsystemic sclerosis/polymyositis overlap.AC-2,4,5,29: SpeckledInternational Consensus on ROBERTO Patterns(https://doi.org/10.1515/qsmv-9576-6335)THIS TEST WAS PERFORMED AT:[employer] [place] [phone] URENA MD ROBERTO TITER 3 TNP [facility] ROBERTO PATTERN 3 [facility] Blood Venous blood specimen / Unknown 11/29/2024 9:13 AM EDT 11/29/2024 11:41 AM EDT us Victorina Medina MD LAB BLOOD ORDERABLES Final Result Performing Organization Address [facility] Co de Phone Number [facility] [address] [place] [phone] * (ABNORMAL) Ferritin (11/29/2024 9:13 AM EDT) Ferritin 8(L) 10 - 250 ng/mL [facility] Blood Venous blood specimen / Unknown 11/29/2024 9:13 AM EDT 11/29/2024 11:41 AM EDT us Victorina Medina MD LAB BLOOD ORDERABLES Final Result Performing Organization Address [facility] Co de Phone Number [facility] [address] [place] [phone] * Vitamin B12 (11/29/2024 9:13 AM EDT) Vitamin B12 787 200 - 900 pg/mL [facility] Comment:NORMAL 200-900 PG/ML INDETERMINATE 160-199 PG/ML DEFICIENT < 160 PG/ML 11/29/2024 9:13 AM EDT 11/29/2024 11:41 AM EDT Victorina Medina MD LAB BLOOD ORDERABLES Final Result [facility] [address] [place] [address] [phone] * (ABNORMAL) CBC auto differential (11/21/2024 12:34 PM EDT) White Blood Count 5.3 4.8 - 10.8 X10*3/uL [facility] Red Blood Count 3.99(L) 4.20 - 5.50 X10*6/uL [facility] Hemoglobin 10.6(L) 12.0 - 16.0 g/dl [facility] Hematocrit 32.9(L) 37.0 - 47.0 % [facility] Mean Corpuscular Volume 82.5 80.0 - 98.0 fL [facility] Mean Corpuscular Hemoglobin 26.6(L) 27.0 - 33.0 pg [facility] Mean Corpuscular HGB Conc 32.2 31.0 - 35.0 g/dl [facility] Red Cell Distribution Width 13.9 11.0 - 16.0 % [facility] Platelet Count 331 160 - 400 X10*3/uL [facility] Mean Platelet Volume 11.0 9.4 - 12.3 fL [facility] Neutrophils Percent Auto 35.0(L) 45 - 73 % [facility] Imm Gran Pct Auto 0.2 0.0 - 0.4 % [facility] Lymphocytes Percent Auto 52.5(H) 20 - 40 % [facility] Monocytes Percent Auto 7.3 2 - 11 % [facility] Eosinophils Percent Auto 4.1(H) 0 - 4 % [facility] Basophils Percent Auto 0.9 0 - 2 % [facility] NRBC Pct Auto 0.0 0.0 - 0.2 /100WBC [facility] Neutrophils Absolute Auto 1.9(L) 2.0 - 8.3 x10*3/uL [facility] Imm Gran Abs Auto 0.01 0.00 - 0.03 X10*3/uL [facility] Lymphocytes Absolute Auto 2.8 1.2 - 4.9 X10*3/uL [facility] Monocytes Absolute Auto 0.4 0.1 - 1.2 X10*3/uL [facility] Eosinophils Absolute Auto 0.2 0.0 - 0.4 X10*3/uL [facility] Basophils Absolute Auto 0.1 0.0 - 0.2 X10*3/uL [facility] NRBC Abs Auto 0.000 0.0 - 0.012 X10*3/uL [facility] 11/21/2024 12:3 4 PM EDT 11/21/2024 1:21 PM EDT us Victorina Medina MD LAB BLOOD ORDERABLES Final Result Performing Organization Address City/[facility] Co de Phone Number [facility] [address] [place] [phone] * Creatine Kinase, Total (11/21/2024 12:34 PM EDT) Creatine Kinase Total 58 26 - 140 U/L [facility] 11/21/2024 12:3 4 PM EDT 11/21/2024 1:21 PM EDT Victorina Medina MD LAB BLOOD ORDERABLES Final Result Performing Organization Address City/[facility] Co de Phone Number [facility] [address] [place] [phone] * Hepatic Function Panel (11/21/2024 12:34 PM EDT) Bilirubin, Total 0.3 0.0 - 1.0 mg/dL [facility] Bilirubin, Direct 0.1 0.0 - 0.5 mg/dL [facility] Aspartate Amino Transferase 21 5 - 31 U/L [facility] Alanine Aminotransferase 16 0 - 31 U/L [facility] Total Protein 7.4 6.5 - 8.0 g/dL [facility] Albumin Level 4.6 3.5 - 5.0 g/dL [facility] Alkaline Phosphatase 57 39 - 117 U/L [facility] 11/21/2024 12:3 4 PM EDT 11/21/2024 1:21 PM EDT us Victorina Medina MD LAB BLOOD ORDERABLES Final Result [facility] [address] [place] [address] [phone] * (ABNORMAL) Lipid Panel, Standard (11/21/2024 12:34 PM EDT) Triglycerides 110 <150 mg/dL [facility] Comment:Desirable Triglyceri de: less than 150 mg/dLBorderline High Triglyceride 150-199 mg/dLHigh Triglyceride: 200-499 mg/dLVery High Triglyceride: greater than or equal to 5OO mg/dL Cholesterol 265(H) <200 mg/dL [facility] Comment:Desirable Cholestero l: less than 200 mg/dLBorderline High Cholesterol: 200-239 mg/dLHigh Cholesterol: greater than 239 mg/dL LDL Cholesterol Calculated 184(H) <100 mg/dL [facility] Comment:Desirable LDL: less than 100 mg/dLNear Optimal/Above Optimal LDL: 110- 129 mg/dLBorderline High LDL: 130-159 mg/dLHigh LDL: 160-189 mg/dLVery High LDL: greater than or equal to 190 mg/dL HDL Cholesterol 59 >40 mg/dL [facility] Comment:Desirable HDL: great er than 40 mg/dL Note: This HDL assay may give artificially low results in patients with liver disease. Blood Venous blood specimen / Unknown 11/21/2024 12:34 PM EDT 11/21/2024 1:21 PM EDT us Victorina Medina MD LAB BLOOD ORDERABLES Final Result Performing Organization Address [facility]/ZIP Co de Phone Number [facility] [address] [place] [address] [phone] * (ABNORMAL) Basic Metabolic Panel (11/21/2024 12:34 PM EDT) Sodium 138 135 - 145 mmol/L [facility] Potassium 5.1 3.3 - 5.1 mmol/L [facility] Chloride 108 96 - 108 mmol/L [facility] Carbon Dioxide 24 22 - 29 mmol/L [facility] Anion Gap 11(L) 12 - 20 [facility] Urea Nitrogen (BUN) 11 9 - 16 mg/dL [facility] Creatinine, Serum 0.64 0.5 - 1.4 mg/dL [facility] Estimated Glomerular Filt Rate >60 [facility] Comment:Chronic Kidney Disea se: Estimated GFR < 60 mL/min/1.11f0Iczatx Kidney Disease: Estimated GFR < 15 mL/min/1.73m2 Glucose 83 60 - 115 mg/dL [facility] Calcium 9.3 8.4 - 10.2 mg/dL [facility] 11/21/2024 12:3 4 PM EDT 11/21/2024 1:21 PM EDT us Victorina Medina MD LAB BLOOD ORDERABLES Final Result Performing Organization Address [facility]/ZIP Co de Phone Number [facility] [address] [place] [phone] [phone] * Culture, Urine, Routine (11/16/2024 12:00 AM EDT) Urine Urine specimen obtained by clean catch procedure / Unknown 11/16/2024 11/16/2024 Comment:UACC Narrative [facility] - 11/18/2024 9:49 AM EDT Urine Culture No growth. Specimen Source: Urine clean catch us Hector Edwards MD LAB MICROBIOLOGY - GENERAL ORDER LORA Final Result Performing Organization Address [facility]/ZIP Co de Phone Number [facility] [address] [place] [phone] * Hepatitis C Antibody with Reflex to HCV, RNA, Quantitative, Real-Time PCR (09/20/2024 10:33 AM EDT) Hepatitis C Antibody Nonreactive Nonreactive [facility] Comment:Antibodies to HCV no t detected; does not exclude early acuteHCV infection. Blood Venous blood specimen / Unknown 09/20/2024 10:33 AM EDT 09/20/2024 11:05 AM EDT us Victorina Medina MD LAB BLOOD ORDERABLES Final Result Performing Organization Address [facility] Co de Phone Number [facility] [address] [place] [address] [phone] * HIV-1/2 Antigen and Antibodies, Fourth Generation, with Reflexes (09/20/2024 10:33 AM EDT) HIV AB/AG Nonreactive Nonreactive [facility] Comment:HIV-1 p24 Ag and/or HIV-1/HIV-2 Ab not detected.A test result that is nonreactive does not exclude thepossibility of exposure to or infection with HIV-1 and/orHIV-2. Nonreactive results in this assay for individualswith prior exposure to HIV-1 and/or HIV-2 may be due toantigen and antibody levels that are below the limit ofdetection of this assay.The KwelianiUshahidi HIV Ag/Ab Combo assay result andsupplemental assay results should be interpreted inconjunction with the patient's clinical presentation,history and other laboratory results. If the results areinconsistent with clinical evidence, additional testing issuggested to confirm the result. Blood Venous blood specimen / Unknown 09/20/2024 10:33 AM EDT 09/20/2024 11:05 AM EDT Victorina Medina MD LAB BLOOD ORDERABLES Final Result [facility] [address] [place] [address] [phone] from Last 3 Months or Most Recently Relevant to Health Maintenance Insurance HSN PARTIAL DENTAL - HSN PARTIAL (MEDICAID) Care Teams Dye Weigher Relationship Specialty Start Date End Date Victorina De La Torre MD [address] [place] [id number] PCP - General Internal Medicine 09/20/24
== END 2025-01-15 13:05 | disposition home or self-care (01) ==
LOC: HO.HHCLNP 13:04
PROVIDERS: Visit Provider Student in an Organized Health Care Education/Training Program
DX: Z13.89 Encounter for screening for other disorder (principal)

== ENCOUNTER 2025-01-16 18:43 | Outpatient (REF) | payer SELFPAY ==
--- OUTSIDE RECORDS SUMMARY | 2025-01-15 09:40 | XMS_ITS | Encounter Summary ---
Author Organization [employer] Address [address] [facility] [address] [place] [address] Care Team Providers Care Pleat Patternmaker Name Role Phone Victorina De La Torre MD Primary Care Provide r Reason for Visit * Reason Comments Vaginal Itching Encounter Details Date Type Department Care Team ([facility] Contact Info) Description 01/15/2025 9:40 AM EDT Office Visit [facility] WALK-IN [place] [address] [place] [address] Chelo Taylor MD [address] [place] [address] Vaginal itching Social History Tobacco Use Types [...] - POCT urinalysis dipstick manually resulted (CPT 60229) Other orders - metroNIDAZOLE (Flagyl) 500 MG tablet; Take 1 tablet (500 mg) by mouth 2 times daily for 5 days. documented in this encounter Plan of Treatment Upcoming Encounters Date Type Department Care Team (Late st Contact Info) Description 01/24/2025 10:30 AM EST Office Visit [facility] ADULT DENTAL [address] [place] [address] 02/28/2025 9:15 AM EST Office Visit [facility] MEDICINE [address] [place] [address] Victorina De La Torre MD [address] [place] [address] Scheduled Orders Name Type Priority Associated Diagnoses Orde r Schedule Bacterial Vaginosis Panel Microbiology Routine Vaginal itching Ordered: 01/15/2025 documented as of this encounter Procedures Procedure Name Priority Date/Time Associated Diagnosis Comments POCT URINALYSIS DIPSTICK Routine 01/15/2025 9:43 AM EDT Vaginal itching documented in this encounter Results * POCT urinalysis dipstick manually resulted (CPT 94308) (01/15/2025 9:43 AM EDT) Color, UA Yellow [...] documented as of this encounter Care Teams Pleat Patternmaker Relationship Specialty Start Date End Date Victorina De La Torre MD [address] [place] [phone] PCP - General Internal Medicine 09/20/24 documented as of this encounter
--- OUTSIDE RECORDS SUMMARY | 2025-01-17 18:58 | XMS_ITS | Clinical Summary ---
Author Organization [employer] Address [address] [facility] [place] [place] [address] Care Team Providers Care Poultry Offal Worker Name Role Phone Victorina De La Torre [...] 11/28/19 26 Active SUMAtriptan (Imitrex) 25 MG tabletIndications: Chronic [...] other day. 15 tablet 2 5 Active acetaminophen (Tylenol) 325 MG tablet Take 2 tablets (650 mg) by mouth every 8 (eight) hours if needed for mild pain. 30 tablet 5 02/08/20 25 Active metroNIDAZOLE (Flagyl) 500 MG tablet Take 1 tablet (500 mg) by mouth 2 times daily for 5 days. 10 tablet 5 01/21/20 25 Active amoxicillin (Amoxil) 500 MG capsule Take 1 capsule (500 mg) by mouth every 8 (eight) hours for 7 days. 21 capsule 5 01/16/20 25 Active Problems Problem Noted Date Diagnosed Date [...] heavy periods I will refer her to [facility] Assessment & Plan (09/20/2024 12:23 PM EDT): Will continue to monitor for now Tuberculosis screening 09/20/2024 Assessment & Plan (09/20/2024 12:24 PM EDT): Patient reports tuberculosis test done previously was positive, but she was never treated I will repeat T spot, if positive I will refer patient to tuberculosis clinic Encounters Date Type Department Care Team Description 01/16/[address] [address] Victorina De La Torre MD Bv repeated 01/15/2025 9:40 AM EDT Office Visit [facility] [address] [place] [phone] Chelo Taylor MD Vaginal itching 01/15/2025 Telephone [facility] [address] [place] [address] [phone] Chelo Taylor MD [facility] CALL (Rece) 01/15/2025 Travel 01/08/2025 8:00 AM EDT Office Visit [facility] [address] [place] [address] AldoaryMonicaub Caries (Primary Dx) 01/07/2025 3:00 PM EDT Office Visit [facility] [address] [place], [place] [phone] Jt Galvez DDS Dental caries (Primary Dx) 01/05/2025 Travel 12/26/2024 8:00 AM EDT Office Visit [facility] [address] [place] [address] Saad Umanzor Dental caries (Primary Dx) 12/20/[address] [address] Victorina De La Torre MD Dec recall 12/13/2024 9:30 AM EDT Clinical Support [address] [address] Megan Tidwell, ARIADNE Encounter for immunization 12/13/2024 Travel 12/11/2024 Orders Only [address] [address] Victorina De La Torre MD Metrorrhagia (Primary Dx) 12/10/[address] [address] Natalia Cat RN Lab Orders 12/04/2024 Orders Only [address] [address] Victorina De La Torre MD Screening examination for STI (Primary Dx) 11/30/2024 Results Follow-Up [address] [address] Victorina De La Torre MD C-reactive Protein, Sed Rate by Modified Westergren, Ferritin, Iron And Total Iron Binding Capacity 11/29/[address] [address] Victorina De La Torre MD Insurance 11/29/2024 Orders Only [address] [address] Victorina De La Torre MD 11/27/2024 10:45 AM EDT Telemedicine [address] [address] Victorina De La Torre MD Polyarthralgia; Chronic nonintractable headache, unspecified headache type; Anemia, unspecified type; Chronic migraine with aura without status migrainosus, not intractable; Metrorrhagia 11/27/2024 Travel 11/21/2024 Orders Only [address] [address] Victorina De La Torre MD Dyslipidemia (Primary Dx) 11/21/[address] [address] Victorina De La Torre MD Lab Orders 11/20/2024 Telephone [facility] [address] [place] [address] Hector Edwards MD 11/16/2024 9:40 AM EDT [facility] [address] [address] Hector Edwards MD Chronic nonintractable headache, unspecified headache type (Primary Dx); Suprapubic pain 11/16/2024 Travel 10/23/2024 6:00 PM EDT Office [facility] [address] [address] Donovan Dumont MD Chronic nonintractable headache, unspecified headache type (Primary Dx) 10/23/2024 Travel 10/23/2024 Telephone [facility] [address] [place] [phone] Victorina De La Torre MD Nurse Triage [...] Description 01/24/2025 10:30 AM EST Office Visit [facility] [address] [place] [address] 02/28/2025 9:15 AM EST Office Visit [facility] [address] [place] [address] Victorina De La Torre MD [address] [place] [address] Health Maintenance Due Date Last Done Comments [...] * POCT urinalysis dipstick manually resulted (CPT 59286) (01/15/2025 9:43 AM EDT) Only the most recent of2 resultswithin the time period is included. Pathologist [facility] Color, UA Yellow Clarity, UA Clear Glucose, UA Negative Bilirubin, UA Negative Ketones, UA Negative Spec Grav, UA 1.005 Blood, UA Negative Negative, None Detected pH, UA 6.0 Protein, UA Negative Urobilinogen, UA 0.2 Leukocytes, UA Trace Negative, Rare, Trace Nitrite, UA Negative Negative, None Detected Appearance, UA clear QC Media Lot # [id number] Lot# Expiration Date Urine (Urine, Random) 01/15/2025 9:43 AM EDT Chelo Taylor MD POINT OF CARE TEST ENTER/EDIT OR DERABLES Final Result * RPR (Monitor) with Reflex to??Titer (12/13/2024 10:00 AM EDT) [facility] RPR (Monitor) w/Refl Titer NON-REACTI VE NON-REACT MICKEY [facility] Comment:THIS TEST WAS PERFOR MED AT:[employer] [place] [phone] URENA MD Rapid Plasma Reagin Ab Titer TNP [facility] Blood Venous blood specimen / Unknown 12/13/2024 10:00 AM EDT 12/13/2024 10:57 AM EDT us Victorina Medina MD LAB BLOOD ORDERABLES Final Result [facility] [address] [place] [phone] * Cyclic Citrullinated Peptide (CCP) Antibody (IgG) (11/29/2024 9:13 AM EDT) [facility] Cyclic Citrullinated Peptide <16 UNITS [facility] Comment:Reference RangeNegat mickey: <20Weak Positive: 20-39Moderate Positive: 40-59Strong Positive: >59THIS TEST WAS PERFORMED AT:[address] [address] [id number] URENA MD Blood Venous blood specimen / Unknown 11/29/2024 9:13 AM EDT 11/29/2024 11:41 AM EDT us Victorina Medina MD LAB BLOOD ORDERABLES Final Result Performing Organization Address [facility]/ZIP Co de Phone Number [facility] [address] [place] [phone] * (ABNORMAL) Iron And Total Iron Binding Capacity (11/29/2024 9:13 AM EDT) Iron 28(L) 30 - 160 mcg/dL [facility] Total Iron Binding Capacity 348 228 - 428 mcg/dL [facility] Percent Iron Saturation 8(L) 15 - 50 % [facility] Unsaturated Iron Binding 320 ug/dL [facility] Blood Venous blood specimen / Unknown 11/29/2024 9:13 AM EDT 11/29/2024 11:41 AM EDT us Victorina Medina MD LAB BLOOD ORDERABLES Final Result Performing Organization Address [facility] de Phone Number [facility] [address] [place] [phone] * (ABNORMAL) Sed Rate by Modified Jessicaren (11/29/2024 9:13 AM EDT) Erythrocyte Sedimentation Rate 36(H) 0 - 20 MM/HR [facility] Comment:Patients with polycy themia and many hemoglobin abnormalitiesmay have depressed sed rates whereas patients with anemiamay have elevated sed rates. Blood Venous blood specimen / Unknown 11/29/2024 9:13 AM EDT 11/29/2024 11:35 AM EDT us Victorina Medina MD LAB BLOOD ORDERABLES Final Result Performing Organization Address [facility]/ZIP Co de Phone Number [facility] [address] [place] [address] [phone] * C-reactive Protein (11/29/2024 9:13 AM EDT) C Reactive Protein 0.36 < or = 0.50 mg/dL [facility] Blood Venous blood specimen / Unknown 11/29/2024 9:13 AM EDT 11/29/2024 11:41 AM EDT us Victorina Medina MD LAB BLOOD ORDERABLES Final Result [facility] [address] [place] [address] [phone] * (ABNORMAL) ROBERTO Screen,IFA, with Reflex to Titer and Pattern (11/29/2024 9:13 AM EDT) Pathologist [facility] Anti Nuclear Antibody Screen POSITIV E(A) NEGATIVE [facility] Comment:ROBERTO IFA is a first l ine screen for detecting thepresence of up to approximately 150 autoantibodies invarious autoimmune diseases. A positive ROBERTO IFA resultis suggestive of autoimmune disease and reflexes totiter and pattern. Further laboratory testing may beconsidered if clinically indicated.For additional information, please refer [email or web address]/faq/[email or web address](This link is being provided for informational/educational purposes only.) ROBERTO Titer 1:80(A) titer [facility] Comment:A low level ROBERTO tite r may be present in pre-clinicalautoimmune diseases and normal individuals. Reference Range <1:40 Negative 1:40-1:80 Low Antibody Level >1:80 Elevated Antibody Level ROBERTO Pattern Nuclear , Homogen eous(A) [facility] Comment:Homogeneous pattern is associated with systemic lupuserythematosus (SLE), drug-induced lupus and juvenileidiopathic arthritis.AC-1: HomogeneousInternational Consensus on ROBERTO Patterns(https://doi.org/10.1515/mhpw-7922-8188) ROBERTO Titer 2 1:40(A) titer [facility] Comment:A low level ROBERTO tite r may be present in pre-clinicalautoimmune diseases and normal individuals. Reference Range <1:40 Negative 1:40-1:80 Low Antibody Level >1:80 Elevated Antibody Level ROBERTO Pattern 2 Nuclear , Speckle d(A) [facility] Comment:Speckled pattern is associated with mixed connectivetissue disease (MCTD), systemic lupus erythematosus(SLE), Sjogren's syndrome, dermatomyositis, andsystemic sclerosis/polymyositis overlap.AC-2,4,5,29: SpeckledInternational Consensus on ROBERTO Patterns(https://doi.org/10.1515/inhy-4624-2393)THIS TEST WAS PERFORMED AT:[employer] [place] [phone] URENA MD ROBERTO TITER 3 [facility] ROBERTO PATTERN 3 [facility] Blood Venous blood specimen / Unknown 11/29/2024 9:13 AM EDT 11/29/2024 11:41 AM EDT us Victorina Medina MD LAB BLOOD ORDERABLES Final Result Performing Organization Address [facility] Co de Phone Number [facility] [address] [place] [phone] * (ABNORMAL) Ferritin (11/29/2024 9:13 AM EDT) Pathologist [facility] Ferritin 8(L) 10 - 250 ng/mL [facility] Blood Venous blood specimen / Unknown 11/29/2024 9:13 AM EDT 11/29/2024 11:41 AM EDT Victorina Medina MD LAB BLOOD ORDERABLES Final Result Performing Organization Address [facility] Co de Phone Number [facility] [address] [place] [phone] * Vitamin B12 (11/29/2024 9:13 AM EDT) Vitamin B12 787 200 - 900 pg/mL [facility] Comment:NORMAL 200-900 PG/ML INDETERMINATE 160-199 PG/ML DEFICIENT < 160 PG/ML 11/29/2024 9:13 AM EDT 11/29/2024 11:41 AM EDT Victorina Medina MD LAB BLOOD ORDERABLES Final Result [facility] [address] [place] [phone] * (ABNORMAL) CBC auto differential (11/21/2024 12:34 PM EDT) Pathologist [facility] White Blood Count 5.3 4.8 - 10.8 X10*3/uL [facility] Red Blood Count 3.99(L) 4.20 - 5.50 X10*6/uL [facility] Hemoglobin 10.6(L) 12.0 - 16.0 g/dl [facility] Hematocrit 32.9(L) 37.0 - 47.0 % [facility] Mean Corpuscular Volume 82.5 80.0 - 98.0 fL [facility] Mean Corpuscular Hemoglobin 26.6(L) 27.0 - 33.0 pg [facility] Mean Corpuscular HGB Conc 32.2 31.0 - 35.0 g/dl [facility] Red Cell Distribution Width 13.9 11.0 - 16.0 % [facility] Platelet Count 331 160 - 400 X10*3/uL [facility] Mean Platelet Volume 11.0 9.4 - 12.3 fL [facility] Neutrophils Percent Auto 35.0(L) 45 - 73 % [facility] Imm Gran Pct Auto 0.2 0.0 - 0.4 % [facility] Lymphocytes Percent Auto 52.5(H) 20 - 40 % [facility] Monocytes Percent Auto 7.3 2 - 11 % [facility] Eosinophils Percent Auto 4.1(H) 0 - 4 % [facility] Basophils Percent Auto 0.9 0 - 2 % [facility] NRBC Pct Auto 0.0 0.0 - 0.2 /100WBC [facility] Neutrophils Absolute Auto 1.9(L) 2.0 - 8.3 x10*3/uL [facility] Imm Gran Abs Auto 0.01 0.00 - 0.03 X10*3/uL [facility] Lymphocytes Absolute Auto 2.8 1.2 - 4.9 X10*3/uL [facility] Monocytes Absolute Auto 0.4 0.1 - 1.2 X10*3/uL [facility] Eosinophils Absolute Auto 0.2 0.0 - 0.4 X10*3/uL [facility] Basophils Absolute Auto 0.1 0.0 - 0.2 X10*3/uL [facility] NRBC Abs Auto 0.000 0.0 - 0.012 X10*3/uL [facility] 11/21/2024 12:3 4 PM EDT 11/21/2024 1:21 PM EDT us Victorina Medina MD LAB BLOOD ORDERABLES Final Result Performing Organization Address [facility]/ZIP Co de Phone Number [facility] [address] [place] [phone] * Creatine Kinase, Total (11/21/2024 12:34 PM EDT) [facility] Creatine Kinase Total 58 26 - 140 U/L [facility] 11/21/2024 12:3 4 PM EDT 11/21/2024 1:21 PM EDT Victorina Medina MD LAB BLOOD ORDERABLES Final Result Performing Organization Address [facility] Co de Phone Number [facility] [address] [place] [phone] * Hepatic Function Panel (11/21/2024 12:34 PM EDT) Bilirubin, Total 0.3 0.0 - 1.0 mg/dL [facility] Bilirubin, Direct 0.1 0.0 - 0.5 mg/dL [facility] Aspartate Amino Transferase 21 5 - 31 U/L [facility] Alanine Aminotransferase 16 0 - 31 U/L [facility] Total Protein 7.4 6.5 - 8.0 g/dL [facility] Albumin Level 4.6 3.5 - 5.0 g/dL [facility] Alkaline Phosphatase 57 39 - 117 U/L [facility] 11/21/2024 12:3 4 PM EDT 11/21/2024 1:21 PM EDT us Victorina Medina MD LAB BLOOD ORDERABLES Final Result [facility] [address] [place] [phone] * (ABNORMAL) Lipid Panel, Standard (11/21/2024 12:34 PM EDT) Triglycerides 110 <150 mg/dL [facility] Comment:Desirable Triglyceri de: less than 150 mg/dLBorderline High Triglyceride 150-199 mg/dLHigh Triglyceride: 200-499 mg/dLVery High Triglyceride: greater than or equal to 5OO mg/dL Cholesterol 265(H) <200 mg/dL [facility] Comment:Desirable Cholestero l: less than 200 mg/dLBorderline High Cholesterol: 200-239 mg/dLHigh Cholesterol: greater than 239 mg/dL LDL Cholesterol Calculated 184(H) <100 mg/dL [facility] Comment:Desirable LDL: less than 100 mg/dLNear Optimal/Above Optimal LDL: 110- 129 mg/dLBorderline High LDL: 130-159 mg/dLHigh LDL: 160-189 mg/dLVery High LDL: greater than or equal to 190 mg/dL HDL Cholesterol 59 >40 mg/dL [facility] Comment:Desirable HDL: great er than 40 mg/dL Note: This HDL assay may give artificially low results in patients with liver disease. Blood Venous blood specimen / Unknown 11/21/2024 12:34 PM EDT 11/21/2024 1:21 PM EDT us Victorina Medina MD LAB BLOOD ORDERABLES Final Result Performing Organization Address [facility]/ZIP Co de Phone Number [facility] [address] [place] [phone] * (ABNORMAL) Basic Metabolic Panel (11/21/2024 12:34 PM EDT) Sodium 138 135 - 145 mmol/L [facility] Potassium 5.1 3.3 - 5.1 mmol/L [facility] Chloride 108 96 - 108 mmol/L [facility] Carbon Dioxide 24 22 - 29 mmol/L [facility] Anion Gap 11(L) 12 - 20 [facility] Urea Nitrogen (BUN) 11 9 - 16 mg/dL [facility] Creatinine, Serum 0.64 0.5 - 1.4 mg/dL [facility] Estimated Glomerular Filt Rate >60 [facility] Comment:Chronic Kidney Disea se: Estimated GFR < 60 mL/min/1.74o0Hlnint Kidney Disease: Estimated GFR < 15 mL/min/1.73m2 Glucose 83 60 - 115 mg/dL [facility] Calcium 9.3 8.4 - 10.2 mg/dL [facility] 11/21/2024 12:3 4 PM EDT 11/21/2024 1:21 PM EDT us Victorina Medina MD LAB BLOOD ORDERABLES Final Result Performing Organization Address [facility] Co de Phone Number [facility] [address] [place] [phone] * Culture, Urine, Routine (11/16/2024 12:00 AM EDT) Urine Urine specimen obtained by clean catch procedure / Unknown 11/16/2024 11/16/2024 Comment:UACC Narrative [facility] - 11/18/2024 9:49 AM EDT Urine Culture No growth. Specimen Source: Urine clean catch us Hector Edwards MD LAB MICROBIOLOGY - GENERAL ORDER LORA Final Result Performing Organization Address City/[facility]/ZIP Co de Phone Number [facility] [address] [place] [phone] * Hepatitis C Antibody with Reflex to HCV, RNA, Quantitative, Real-Time PCR (09/20/2024 10:33 AM EDT) Hepatitis C Antibody Nonreactive Nonreactive [facility] Comment:Antibodies to HCV no t detected; does not exclude early acuteHCV infection. Blood Venous blood specimen / Unknown 09/20/2024 10:33 AM EDT 09/20/2024 11:05 AM EDT us Victorina Medina MD LAB BLOOD ORDERABLES Final Result Performing Organization Address [facility]/ZIP Co de Phone Number [facility] [address] [place] [phone] * HIV-1/2 Antigen and Antibodies, Fourth Generation, with Reflexes (09/20/2024 10:33 AM EDT) HIV AB/AG Nonreactive Nonreactive [facility] Comment:HIV-1 p24 Ag and/or HIV-1/HIV-2 Ab not detected.A test result that is nonreactive does not exclude thepossibility of exposure to or infection with HIV-1 and/orHIV-2. Nonreactive results in this assay for individualswith prior exposure to HIV-1 and/or HIV-2 may be due toantigen and antibody levels that are below the limit ofdetection of this assay.The goDog Fetch HIV Ag/Ab Combo assay result andsupplemental assay results should be interpreted inconjunction with the patient's clinical presentation,history and other laboratory results. If the results areinconsistent with clinical evidence, additional testing issuggested to confirm the result. Blood Venous blood specimen / Unknown 09/20/2024 10:33 AM EDT 09/20/2024 11:05 AM EDT Victorina Medina MD LAB BLOOD ORDERABLES Final Result [facility] [address] [place] [phone] from Last 3 Months or Most Recently Relevant to Health Maintenance Insurance [employer] PARTIAL DENTAL - HSN PARTIAL (MEDICAID) Care Teams Poultry Offal Worker Relationship Specialty Start Date End Date Victorina De La Torre MD [address] [place] [address] PCP - General Internal Medicine 09/20/24
--- OUTSIDE RECORDS SUMMARY | 2025-01-17 18:58 | XMS_ITS | Encounter Summary ---
Author Organization [employer] Address [address] [place] [address] Care Team Providers Care Investigator Operator Name Role Phone Victorina De La [...] Description 01/24/2025 10:30 AM EST Office Visit [facility] [address] [place] [phone] 02/28/2025 9:15 AM EST Office Visit [facility] [address] [place] [address] Victorina De La Torre MD [address] [place] [address] documented as of this encounter Visit Diagnoses Not on filedocumented in this encounter Additional Health Concerns Assessment Noted Time PHQ-9 Depression Total Score: 0 09/21/19 9:11 AM EDT documented as of this encounter Care Teams Investigator Operator Relationship Specialty Start Date End Date Victorina De La Torre MD [address] [place] [phone] PCP - General Internal Medicine 09/20/24 documented as of this encounter
--- OUTSIDE RECORDS SUMMARY | 2025-01-17 18:58 | XMS_ITS | Encounter Summary ---
Author Organization [employer] Address [address] [place] [address] Care Team Providers Care Textiles Sales Representative Name Role Phone Victorina De La Torre MD Primary Care Provide r Reason for Visit * Reason Onset Date Comments [facility] CALL 01/15/2025 Rece Encounter Details Date Type Department Care Team ([facility] Contact Info) Description 01/15/2025 Telephone [facility] [address] [place] [address] Chelo Taylor MD [address] [place] [address] [facility] CALL (Rece) Social History Tobacco Use Types [...] 01/15/2025 1:33 PM EDT Received call from [facility] Lab stating that BV panel cannot be [...] Description 01/24/2025 10:30 AM EST Office Visit [facility] [address] [place] [address] 02/28/2025 9:15 AM EST Office Visit [facility] [address] [place] [address] Victorina De La Torre MD [address] [place] [address] documented as of this encounter Visit Diagnoses Not on filedocumented in this encounter Additional Health Concerns Assessment Noted Time PHQ-9 Depression Total Score: 0 09/21/19 25 9:11 AM EDT documented as of this encounter Care Teams Textiles Sales Representative Relationship Specialty Start Date End Date Victorina De La Torre MD [address] [place] [address] PCP - General Internal Medicine 09/20/24 documented as of this encounter
--- OUTSIDE RECORDS SUMMARY | 2025-01-17 18:58 | XMS_ITS | Encounter Summary ---
Author Organization [employer] Address [address] [place] [address] Care Team Providers Care Needle Maker Name Role Phone Victorina De La Torre MD Primary Care Provide r Reason for Visit * Reason Onset Date Comments Bv repeated 01/16/2025 Encounter Details Date Type Department Care Team ([facility] st Contact Info) Description 01/16/2025 Telephone [facility] [address] [place], [place] [phone] Victorina De La Torre MD [address] [place], [place] [phone] Bv repeated Social History Tobacco Use Types Packs/Day Years [...] encounter Miscellaneous Notes * Telephone Encounter - Naye Mock [place] - 01/16/2025 2:12 PM EDT I spoke with the pt the pt is coming tomorrow to repeat the test again for BV. documented in this encounter Plan of Treatment Upcoming Encounters Date Type Department Care Team (Late st Contact Info) Description 01/24/2025 10:30 AM EST Office Visit [facility] [address] [place] [address] 02/28/2025 9:15 AM EST Office Visit [facility] [address] [place] [address] Victorina De La Torre MD [address] [place] [address] documented as of this encounter Visit Diagnoses Not on filedocumented in this encounter Additional Health Concerns Assessment Noted Time PHQ-9 Depression Total Score: 0 09/21/19 25 9:11 AM EDT documented as of this encounter Care Teams Needle Maker Relationship Specialty Start Date End Date Victorina De La Torre MD [address] [place] [phone] PCP - General Internal Medicine 09/20/24 documented as of this encounter
[2025-01-18 01:03] LABS: Bacterial Vaginosis PCR NEGATIVE (Negative); Candida Group PCR DETECTED (Not Detect); Candida glab krusei PCR NOT DETECTED (Not Detect); Trichomonas vaginalis PCR NOT DETECTED (Not Detect)
== END 2025-01-16 18:44 | disposition home or self-care (01) ==
LOC: HO.HHCLNP 18:43
PROVIDERS: Visit Provider Student in an Organized Health Care Education/Training Program
DX: N89.8 Other specified noninflammatory disorders of vagina (principal); Z20.2 Contact with and (suspected) exposure to infections with a predominantly sexual mode of transmission
CPT/HCPCS: 81515